=== PATIENT | female | born 1955 | race Caucasian/White ===

== ENCOUNTER 2019-10-13 09:18 | Outpatient (CLI) | payer BC, SELFPAY ==
[2019-10-13 09:42] LABS: Basophils Percent Auto 0.7 % (0.2-1.2); Eosinophils Absolute Auto 0.1 K/mm3 (0-0.3); Eosinophils Percent Auto 1.3 % (0-4.4); Hematocrit 38.1 % (37.0-47.0); Hemoglobin 12.8 g/dL (12.0-15.0); Immature Granulocyte Absolute 0.01 K/mm3 (0.00-0.031); Immature Granulocyte Percent A 0.2 % (0-0.5); Lymphocytes Absolute Auto 1.53 K/mm3 (0.9-3.2); Lymphocytes Percent Auto 27.5 % (18.3-44.2); Mean Corpuscular HGB Conc 33.6 g/dl (32-36); Mean Corpuscular Hemoglobin 30.1 pg (26-34); Mean Corpuscular Volume 89.6 fl (80-100); Mean Platelet Volume 10.2 fl (7.4-10.4); Monocytes Absolute Auto 0.3 K/mm3 (0.1-0.6); Monocytes Percent Auto 6.1 % (2.6-8.5); Neutrophils Absolute Auto 3.6 K/mm3 (1.3-6.7); Neutrophils Percent Auto 64.2 % (45.5-73.1); Platelet Count Result 265 k/mm3 (150-375); Red Blood Count 4.25 M/mm3 (4.2-5.4); Red Cell Distribution Width 11.9 % (11.5-14.5); White Blood Count 5.6 K/mm3 (4.5-10.0)
[2019-10-13 09:46] LABS: Alanine Aminotransferase 14 U/L (4-35); Albumin Level 4.2 g/dL (3.5-5.1); Alkaline Phosphatase 74 U/L (38-126); Anion Gap 8.8 mmol/L (7-16); Aspartate Amino Transferase 26 U/L (14-36); Bilirubin,Total 0.4 mg/dL (0.2-1.3); Blood Urea Nitrogen 14 mg/dL (7-17); Calcium 8.9 mg/dL (8.4-10.2); Carbon Dioxide 29 mmol/L (22-30); Chloride 104 mmol/L (98-107); Cholesterol 280 mg/dL (0-200); Estimated Glomerular Filt Rate > 60; Glucose 98 mg/dL (65-105); HDL Direct 55 mg/dL; Potassium 3.8 mmol/L (3.4-5.0); Sodium 138 mmol/L (137-145); Triglycerides 130 mg/dL (<150)
[2019-10-13 09:59] LABS: LDL Cholesterol Direct 162 mg/dL
[2019-10-13 10:37] LABS: Vitamin D 25 Hydroxy 35.6 ng/mL
[2019-10-17 17:59] LABS: Carbamazepine Tegretol 4.6 mcg/mL (4.0-12.0)
== END 2019-10-13 09:19 | disposition home or self-care (01) ==
LOC: ANHLAB 09:19
PROVIDERS: PCP Internal Medicine; Visit Provider Internal Medicine
DX: Z00.00 Encounter for general adult medical examination without abnormal findings (principal); E55.9 Vitamin D deficiency, unspecified; Z51.81 Encounter for therapeutic drug level monitoring; E78.5 Hyperlipidemia, unspecified
CPT/HCPCS: 36415; 80053; 80061; 80156; 82306; 85025

== ENCOUNTER 2020-01-21 08:20 | Outpatient (CLI) | payer BC, SELFPAY ==
--- NOTE | ~2020-01-21 | MM_ITS ---
EXAMINATION: MM screening [facility] BI w [place] HISTORY: Screening mammogram TECHNIQUE: Craniocaudal and mediolateral oblique 3-D tomosynthesis images were obtained and synthetic 2-D images were generated. CAD analysis was submitted and interpreted. COMPARISON: 12/23/2018, 10/25/2017, 08/28/2016 BREAST PARENCHYMAL COMPOSITION: There are scattered areas of fibroglandular density. FINDINGS: There is no evidence of suspicious mass, calcification, or architectural distortion to sugg est malignancy in either breast. There has been no suspicious interval change. IMPRESSION: 1. No mammographic evidence of malignancy. 2. Recommend routine screening mammography in one year. BI-RADS Category 1: Negative Reviewed, dictated and finalized at location D. CARD TENDER
== END 2020-01-21 08:21 | disposition home or self-care (01) ==
LOC: ANHIMG 08:21
PROVIDERS: PCP Internal Medicine; Visit Provider Obstetrics & Gynecology
DX: Z12.31 Encounter for screening mammogram for malignant neoplasm of breast (principal)
CPT/HCPCS: 77063; 77067

== ENCOUNTER 2020-10-11 07:58 | Outpatient (CLI) | payer MEDICARE, SELFPAY ==
[2020-10-11 09:02] LABS: Alanine Aminotransferase 23 U/L (14-59); Albumin Level 3.5 g/dL (3.4-5.0); Alkaline Phosphatase 80 U/L (46-116); Anion Gap 10 mmol/L (8-16); Aspartate Amino Transferase 17 U/L (15-37); Bilirubin,Total 0.3 mg/dL (0.00-1.00); Blood Urea Nitrogen 14 mg/dL (7-18); Calcium 8.7 mg/dL (8.5-10.1); Carbon Dioxide 28 mmol/L (21-32); Chloride 106 mmol/L (98-108); Cholesterol 247 mg/dL (0-200); Estimated Glomerular Filt Rate > 60; Glucose 91 mg/dL (70-99); HDL Direct 54 mg/dL (40-60); LDL Cholesterol Calculated 172 mg/dL (<130); Osmolality Calculated 298 mOsm/kg (285-295); Potassium 4.1 mmol/L (3.5-5.1); Sodium 144 mmol/L (136-145); Total Protein 7.2 g/dL (6.4-8.2); Triglycerides 105 mg/dL (0-150)
[2020-10-13 18:20] LABS: Vitamin D 25 Hydroxy 26 ng/mL (30-100)
[2020-10-15 22:33] LABS: Carbamazepine Tegretol 5.4 mcg/mL (4.0-12.0)
== END 2020-10-11 07:59 | disposition home or self-care (01) ==
PROVIDERS: PCP Internal Medicine; Visit Provider Internal Medicine
DX: E55.9 Vitamin D deficiency, unspecified (principal); E78.5 Hyperlipidemia, unspecified; Z00.00 Encounter for general adult medical examination without abnormal findings
CPT/HCPCS: 36415; 80053; 80061; 80156; 82306

== ENCOUNTER 2021-03-14 08:13 | Outpatient (CLI) | payer MEDICARE, SELFPAY ==
--- NOTE | ~2021-03-14 | MM_ITS ---
EXAMINATION: MM screening [facility] BI w [place] HISTORY: Screening mammogram TECHNIQUE: Craniocaudal and mediolateral oblique 3-D tomosynthesis images were obtained and synthetic 2-D images were generated. CAD analysis was submitted and interpreted. COMPARISON: 01/21/2020, 12/23/2018, 10/25/2017 BREAST PARENCHYMAL COMPOSITION: There are scattered areas of fibroglandular density. FINDINGS: There is no evidence of suspicious mass, calcification, or architectural distortion to sugg est malignancy in either breast. There has been no suspicious interval change. IMPRESSION: 1. No mammographic evidence of malignancy. 2. Recommend routine screening mammography in one year. BI-RADS Category 1: Negative Reviewed, dictated and finalized at location A. 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
== END 2021-03-14 08:14 | disposition home or self-care (01) ==
LOC: ANHIMG 08:14
PROVIDERS: PCP Internal Medicine; Visit Provider Obstetrics & Gynecology
DX: Z12.31 Encounter for screening mammogram for malignant neoplasm of breast (principal)
CPT/HCPCS: 77063; 77067

== ENCOUNTER 2021-10-11 06:51 | Outpatient (CLI) | payer MEDICARE, SELFPAY ==
[2021-10-11 07:38] LABS: Alanine Aminotransferase 21 U/L (14-59); Albumin Level 3.4 g/dL (3.4-5.0); Alkaline Phosphatase 75 U/L (46-116); Anion Gap 5 mmol/L (8-16); Aspartate Amino Transferase 15 U/L (15-37); Bilirubin,Total 0.3 mg/dL (0.00-1.00); Blood Urea Nitrogen 14 mg/dL (7-18); Calcium 8.7 mg/dL (8.5-10.1); Carbon Dioxide 30 mmol/L (21-32); Chloride 105 mmol/L (98-108); Cholesterol 237 mg/dL (0-200); Estimated Glomerular Filt Rate > 60; Glucose 91 mg/dL (70-99); HDL Direct 59 mg/dL (40-60); LDL Cholesterol Calculated 158 mg/dL (<130); Osmolality Calculated 290 mOsm/kg (285-295); Potassium 3.9 mmol/L (3.5-5.1); Sodium 140 mmol/L (136-145); Total Protein 6.9 g/dL (6.4-8.2); Triglycerides 102 mg/dL (0-150)
[2021-10-17 07:28] LABS: Vitamin D 25 Hydroxy 29 ng/mL (30-100)
== END 2021-10-11 06:52 | disposition home or self-care (01) ==
LOC: CHSLAB 06:53
PROVIDERS: PCP Internal Medicine; Visit Provider Internal Medicine
DX: E78.5 Hyperlipidemia, unspecified (principal); E55.9 Vitamin D deficiency, unspecified
CPT/HCPCS: 36415; 80053; 80061; 82306

== ENCOUNTER 2021-10-24 08:47 | Outpatient (RCR) | payer MEDICARE, SELFPAY ==
--- NOTE | 2021-10-24 11:27 | PTOPEVAL ---
Thank you for referring Ruma Floyd to [facility].? The patient is scheduled to be seen for therapy? 1-2x/week for 10 visits. Please review, sign, date and return this plan of care JANICE. I agree with and certify that the following plan of care is medically necessary. Referring Physician Date Admitting Provider: Attending Provider: Jarrell Bess DO Referring Provider: *PT Outpatient Evaluation Start: 10/24/21 08:32 Freq: Status: Active Protocol: Document 10/24/21 08:57 [facility] (Rec: 10/24/21 11:24 [facility] [email or web address]) Therapy Assessment Status Assessment Status Assessment Status Evaluation Evaluation Information Problem Diagnosis Pain in leg, pain in hip, LBP Onset 10/18/2021 Subjective Information Pt reports insidious onset of Query Text:As Reported By Patient/ L hip pain over the past 2 Family years and recent flare up in back pain after standing up incorrectly. Pt reports past history of R foot surgery in 2018 where she was in a boot for about 4 months and wonders if this has led to her L hip pain. Has had Xray which shows arthritis in L hip. Pt reports her pain in her anterolateral and posterior thigh and in her L and R low back region. Pt reports most pain when standing for extended periods of time or when lying on her side (R>L), as well as when she first wakes up on the morning. Feels like she walks like a penguin to avoid shooting pain in hip . Denies N/T or weakness. Pt reports pain relief when moving, using ice/heat, or massaging her low back. Likes to read and sit outside, walk and go out to eat with friends , and ride stationary bike every day. 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
== END 2021-12-09 16:42 | disposition home or self-care (01) ==
LOC: CHSPT 08:47
PROVIDERS: Visit Provider Internal Medicine
DX: M79.606 Pain in leg, unspecified (principal); M25.559 Pain in unspecified hip; M54.50 Low back pain, unspecified; G89.29 Other chronic pain
CPT/HCPCS: 97110; 97112; 97140; 97161

== ENCOUNTER 2021-11-04 09:12 | Outpatient (CLI) | payer MEDICARE, SELFPAY ==
[2021-11-04 09:34] LABS: Basophils Absolute Auto 0.02 K/mm3 (0.00-0.10); Basophils Percent Auto 0.4 % (0.0-1.0); Eosinophils Absolute Auto 0.04 K/mm3 (0.02-0.50); Eosinophils Percent Auto 0.7 % (1.0-6.0); Hematocrit 36.7 % (35.0-42.0); Hemoglobin 12.4 g/dL (11.7-13.8); Immature Granulocyte Absolute 0.01 K/mm3 (0.00-0.00); Immature Granulocyte Percent A 0.2 % (0.0-0.0); Lymphocytes Absolute Auto 1.43 K/mm3 (1.10-4.50); Lymphocytes Percent Auto 26.8 % (18.0-42.0); Mean Corpuscular HGB Conc 33.8 g/dL (32.0-36.0); Mean Corpuscular Hemoglobin 30.7 pg (27.0-31.0); Mean Corpuscular Volume 90.8 fL (78.0-102.0); Mean Platelet Volume 9.4 fl (9.2-11.8); Monocytes Absolute Auto 0.29 K/mm3 (0.10-0.90); Monocytes Percent Auto 5.4 % (2.0-11.0); Neutrophils Absolute Auto 3.6 K/mm3 (1.7-7.2); Neutrophils Percent Auto 66.5 % (50.0-70.0); Platelet Count Result 274 K/mm3 (150-420); Red Blood Count 4.04 M/mm3 (4.20-5.40); Red Cell Distribution Width 11.8 % (11.6-14.4); White Blood Count 5.3 K/mm3 (4.8-10.8)
[2021-11-04 10:14] LABS: Alanine Aminotransferase 24 U/L (14-59); Albumin Level 3.4 g/dL (3.4-5.0); Alkaline Phosphatase 80 U/L (46-116); Anion Gap 5 mmol/L (8-16); Aspartate Amino Transferase 29 U/L (15-37); Bilirubin,Total 0.3 mg/dL (0.00-1.00); Blood Urea Nitrogen 11 mg/dL (7-18); Calcium 8.9 mg/dL (8.5-10.1); Carbon Dioxide 29 mmol/L (21-32); Chloride 103 mmol/L (98-108); Estimated Glomerular Filt Rate > 60; Glucose 99 mg/dL (70-99); Osmolality Calculated 283 mOsm/kg (285-295); Potassium 3.8 mmol/L (3.5-5.1); Sodium 137 mmol/L (136-145); Total Protein 7.4 g/dL (6.4-8.2)
[2021-11-04 10:18] LABS: Cholesterol 244 mg/dL (0-200); HDL Direct 61 mg/dL (40-60); LDL Cholesterol Calculated 160 mg/dL (<130); Triglycerides 113 mg/dL (0-150)
[2021-11-07 19:11] LABS: Vitamin D 25 Hydroxy 36 ng/mL (30-100)
[2021-11-08 23:30] LABS: Carbamazepine Tegretol 4.5 mcg/mL (4.0-12.0)
== END 2021-11-04 09:13 | disposition home or self-care (01) ==
LOC: CHSLAB 09:13
PROVIDERS: PCP Internal Medicine; Visit Provider Psychiatry & Neurology Neurology
DX: R56.9 Unspecified convulsions (principal); Z51.81 Encounter for therapeutic drug level monitoring; E78.5 Hyperlipidemia, unspecified; Z00.00 Encounter for general adult medical examination without abnormal findings; E55.9 Vitamin D deficiency, unspecified
CPT/HCPCS: 36415; 80053; 80061; 80156; 82306; 85025

== ENCOUNTER 2022-02-08 13:13 | Outpatient (CLI) | payer MEDICARE, SELFPAY ==
--- NOTE | ~2022-02-08 | XR_ITS ---
XR hip LT min 2V 02/08/2022 13:37 Indication: Left hip pain Procedure: 2 views left hip Comparison: No prior studies for comparison. Findings: There is severe osteoarthritis of the left hip. There are loose bodies adjacent to the join t space. No acute fracture or traumatic malalignment. There are degenerative subchondral cyst along t he acetabulum and femoral head. Impression: 1: Severe osteoarthritis of the left hip. Reviewed, dictated and finalized at location A. 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
== END 2022-02-08 13:14 | disposition home or self-care (01) ==
LOC: CHSIMG 13:15
PROVIDERS: PCP Internal Medicine; Visit Provider Internal Medicine
DX: M16.12 Unilateral primary osteoarthritis, left hip (principal)
CPT/HCPCS: 73502

== ENCOUNTER 2022-05-05 08:24 | Outpatient (CLI) | payer MEDICARE, SELFPAY ==
--- NOTE | ~2022-05-05 | DEXA_ITS ---
Bone Density Report Name: PRASHANT LEMOS Age: 66 Sex: Female Ethnicity: White Date of : 1955 Indication: postmenopausal; screening for osteoporosis; height loss; Referring Provider: ALEXI GARCIA Study: Bone densitometry was performed. Exam Date: May 05, 2022 Accession number: [id number] Bone Density: Region BMD T-score Z-score Classification AP Spine(L1-L4) 1.115 0.6 2.5 Normal Femoral Neck (Left) 0.742 -1.0 0.6 Normal Total Hip (Left) 0.793 -1.2 0.1 Osteopenia Femoral Neck (Right) 0.673 -1.6 0.0 Osteopenia Total Hip (Right) 0.854 -0.7 0.6 Normal Total Hip Mean 0.824 -1.0 0.4 Normal World Health Organization criteria for BMD impression classify patients as: Normal (T-score at or above -1.0), Osteopenia (T-score between -1.0 and -2.5), or Osteoporosis (T-score at or below -2.5). 10-year Fracture Risk(1): Major Osteoporotic Fracture 9.2% Hip Fracture 1.1% Reported Risk Factors: [place] (), Neck BMD=0.673, BMI=28.8 (1) FRAX(R) Version 3.08. Fracture probability calculated for an untreated patient. Fracture probability may be lower if the patient has received treatment. Clinical Information Provided by Patient: Has used the following medications: Vitamin D Patient maximum height was 70 Menopause Age: 50 Drinks caffeinated beverages Onset of menses at age 12 Number of children 1 Impression: The patient has low bone mass, based on the Right Femoral Neck T-score. The patient has an estimated ten-year risk of hip fracture of 1.1% and an estimated ten-year risk of major fracture of 9.2%, based on the WHO FRAX algorithm. Discussion: BONE DENSITY IS LOW AT ONE OR MORE SKELETAL SITES. This patient's lowest T-score is low at one or more skeletal sites. It meets the World Health Organization's (WHO) criteria for ?low bone mass? (T-score between -1.0 and -2.5). The patient's 10-year risk of fracture as calculated by FRAX is less than the threshold where pharmacological therapy is recommended by the National Osteoporosis Foundation (NOF). However, all treatment decisions require clinical judgment and consideration of individual patient factors, including patient preferences, comorbidities, previous drug use, risk factors not captured in the FRAX model (e.g., frailty, falls, vitamin D deficiency, increased bone turnover, interval significant decline in bone density) and possible under or overestimation of fracture risk by FRAX. The patient should follow a healthful lifestyle (good nutrition with adequate calcium and vitamin D, and appropriate weight-bearing exercise). Follow-Up: Consider repeating this study in 2 to 3 years to reassess this patient's status, or sooner if there is some new clinical indication. Reported by: ABEL on 05/05/2022 8:50:00 AM. ____
--- NOTE | ~2022-05-05 | MM_ITS ---
EXAMINATION: MM screening [facility] BI w [facility] HISTORY: Screening mammogram TECHNIQUE: Craniocaudal and mediolateral oblique 3-D tomosynthesis images were obtained and synthetic 2-D images were generated. CAD analysis was submitted and interpreted. COMPARISON: 01/12/2022, 01/21/2020, 12/23/2018 bilateral screening mammogram examinations BREAST PARENCHYMAL COMPOSITION: There are scattered areas of fibroglandular density. FINDINGS: There is no evidence of suspicious mass, calcification, or architectural distortion to sugg est malignancy in either breast. There has been no suspicious interval change. IMPRESSION: 1. No mammographic evidence of malignancy. 2. Recommend routine screening mammography in one year. BI-RADS Category 1: Negative Reviewed, dictated and finalized at location A. 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
== END 2022-05-05 08:25 | disposition home or self-care (01) ==
LOC: ANHIMG 08:27
PROVIDERS: PCP Internal Medicine; Visit Provider Obstetrics & Gynecology
DX: Z12.31 Encounter for screening mammogram for malignant neoplasm of breast (principal); Z78.0 Asymptomatic menopausal state; M85.852 Other specified disorders of bone density and structure, left thigh; M85.851 Other specified disorders of bone density and structure, right thigh
CPT/HCPCS: 77063; 77067; 77080

== ENCOUNTER 2022-05-30 07:32 | Outpatient (CLI) | payer MEDICARE, SELFPAY ==
[2022-05-30 08:06] LABS: Hemoglobin A1C 5.7 % (<5.7)
[2022-05-30 08:38] LABS: Alanine Aminotransferase 28 U/L (14-59); Albumin Level 3.5 g/dL (3.4-5.0); Alkaline Phosphatase 80 U/L (46-116); Anion Gap 6 mmol/L (8-16); Aspartate Amino Transferase 20 U/L (15-37); Bilirubin,Total 0.4 mg/dL (0.00-1.00); Blood Urea Nitrogen 13 mg/dL (7-18); Calcium 8.6 mg/dL (8.5-10.1); Carbon Dioxide 32 mmol/L (21-32); Chloride 105 mmol/L (98-108); Cholesterol 231 mg/dL (0-200); Estimated Glomerular Filt Rate > 60; Glucose 93 mg/dL (70-99); HDL Direct 69 mg/dL (40-60); LDL Cholesterol Calculated 145 mg/dL (<130); Osmolality Calculated 296 mOsm/kg (285-295); Potassium 4.2 mmol/L (3.5-5.1); Sodium 143 mmol/L (136-145); Thyroid Stimulating Hormone 1.35 uIU/mL (0.36-3.74); Total Protein 7.3 g/dL (6.4-8.2); Triglycerides 86 mg/dL (0-150)
[2022-06-02 19:21] LABS: Carbamazepine Tegretol 5.7 mcg/mL (4.0-12.0)
[2022-06-03 12:30] LABS: Vitamin D 1,25 (OH)2 Total 46 pg/mL (18-72); Vitamin D2 1,25 (OH)2 31 pg/mL; Vitamin D3 1,25 (OH)2 15 pg/mL
== END 2022-05-30 07:33 | disposition home or self-care (01) ==
LOC: CHSLAB 07:34
PROVIDERS: PCP Internal Medicine; Visit Provider Internal Medicine
DX: E78.5 Hyperlipidemia, unspecified (principal); G40.909 Epilepsy, unspecified, not intractable, without status epilepticus; E55.9 Vitamin D deficiency, unspecified; Z79.899 Other long term (current) drug therapy
CPT/HCPCS: 36415; 80053; 80061; 80156; 82652; 83036; 84443

== ENCOUNTER 2022-10-17 08:24 | Outpatient (CLI) | payer MEDICARE, SELFPAY ==
[2022-10-17 08:56] LABS: Basophils Absolute Auto 0.02 K/mm3 (0.00-0.10); Basophils Percent Auto 0.4 % (0.0-1.0); Eosinophils Absolute Auto 0.04 K/mm3 (0.02-0.50); Eosinophils Percent Auto 0.9 % (1.0-6.0); Hematocrit 36.4 % (35.0-42.0); Hemoglobin 12.3 g/dL (11.7-13.8); Immature Granulocyte Absolute 0.01 K/mm3 (0.00-0.00); Immature Granulocyte Percent A 0.2 % (0.0-0.0); Lymphocytes Absolute Auto 1.04 K/mm3 (1.10-4.50); Lymphocytes Percent Auto 22.2 % (18.0-42.0); Mean Corpuscular HGB Conc 33.8 g/dL (32.0-36.0); Mean Corpuscular Hemoglobin 30.4 pg (27.0-31.0); Mean Corpuscular Volume 90.1 fL (78.0-102.0); Mean Platelet Volume 9.4 fl (9.2-11.8); Monocytes Absolute Auto 0.28 K/mm3 (0.10-0.90); Neutrophils Absolute Auto 3.3 K/mm3 (1.7-7.2); Neutrophils Percent Auto 70.3 % (50.0-70.0); Platelet Count Result 239 K/mm3 (150-420); Red Blood Count 4.04 M/mm3 (4.20-5.40); Red Cell Distribution Width 11.5 % (11.6-14.4); White Blood Count 4.7 K/mm3 (4.8-10.8)
[2022-10-17 09:23] LABS: Alanine Aminotransferase 25 U/L (14-59); Albumin Level 3.7 g/dL (3.4-5.0); Alkaline Phosphatase 92 U/L (46-116); Anion Gap 5 mmol/L (8-16); Aspartate Amino Transferase 16 U/L (15-37); Bilirubin Direct 0.1 mg/dL (0-0.2); Bilirubin,Total 0.3 mg/dL (0.00-1.00); Blood Urea Nitrogen 13 mg/dL (7-18); Carbon Dioxide 31 mmol/L (21-32); Chloride 104 mmol/L (98-108); Cholesterol 183 mg/dL (0-200); Estimated Glomerular Filt Rate > 60; HDL Direct 64 mg/dL (40-60); LDL Cholesterol Calculated 99 mg/dL (<130); Potassium 4.1 mmol/L (3.5-5.1); Sodium 140 mmol/L (136-145); Total Protein 7.4 g/dL (6.4-8.2); Triglycerides 102 mg/dL (0-150)
[2022-10-17 09:27] LABS: Glucose 96 mg/dL (70-99); Osmolality Calculated 290 mOsm/kg (285-295)
[2022-10-22 22:44] LABS: Vitamin D 25 Hydroxy 49 ng/mL (30-100)
== END 2022-10-17 08:25 | disposition home or self-care (01) ==
LOC: CHSLAB 08:26
PROVIDERS: PCP Family Medicine; Visit Provider Nurse Practitioner Family
DX: E78.5 Hyperlipidemia, unspecified (principal); Z13.228 Encounter for screening for other metabolic disorders; Z13.0 Encounter for screening for diseases of the blood and blood-forming organs and certain disorders involving the immune mechanism; E55.9 Vitamin D deficiency, unspecified; Z78.0 Asymptomatic menopausal state
CPT/HCPCS: 36415; 80053; 80061; 82248; 82306; 85025

== ENCOUNTER 2022-10-30 07:52 | Outpatient (RCR) | payer MEDICARE, SELFPAY ==
--- NOTE | 2022-10-30 08:57 | OPREHPOC ---
Outpatient Therapy Plan of Care This is a Multidisciplinary Plan of Care that may contain components documented by all disciplines (PT, OT, and ST.) PT Problem 1 PT Problem #1 Knowledge Deficit PT Goal 1 Goal Patient to demonstrate independence with self techniques to manage vertigo at home. Target Visit 4 PT Problem 2 PT Problem #2 Impaired Functional Mobil PT Goal 1 Goal 1. Patient to report ability to roll to the R in bed with no increase in vertigo symptoms. 2. Patient to report ability to complete house hold tasks at PLOF Target Visit 4
--- NOTE | 2022-10-30 08:57 | PTOPEVAL1 ---
Assessment and note entered by Nancy Fermin DPT Evaluation Information Assessment Status Evaluation Diagnosis vertigo, dizziness Onset 10/24/22 Subjective Information Patient reports that she has had dizziness increasing over the last year with recent occurances in the last week. She reports in bed if she rolls from L to R in bed she gets a short bout of room spinning. She also reports neck pain that seems to cause sharp pains and head ache. She reports she is getting an MRI but is waiting for insurance approval. Reported Pain Level Pain Score 0: Self Report Assessment PT Clinical Summary Patient is a 67 year old female who presents to PT with vertigo and dizziness. Patient displays positive nazario white pike to the R side that is resolved with R modified epely. Patient also demonstrates decreased cervical ROM. Patient is limited in her ability to roll and bed and complete house hold tasks and would benefit from skilled PT to address impairments and return to PLOF. Plan of Care Interventions Hot Pack/Cold Pack,Manual Therapy,Mechanical Traction,Neuro Re-education,Patient/Caregiver Educati,Therapeutic Activities,Therapeutic Exercise PT Services Indicated Yes Treatment Frequency and 2x weekly for 4 visits Duration These treatments will address the objective and functional deficits as defined above. The patient will be advanced safely and appropriately in order for the patient to progress towards his/her prior level of function. Additional exercises will be introduced and as well as a comprehensive home exercise program upon discharge, if needed, ?to ensure carryover of functional gains achieved in the clinic. This treatment plan has been reviewed and agreement upon by the patient.
== END 2022-11-02 14:08 | disposition home or self-care (01) ==
LOC: CHSPT 07:52
PROVIDERS: Visit Provider Student in an Organized Health Care Education/Training Program
DX: H81.11 Benign paroxysmal vertigo, right ear (principal); M54.2 Cervicalgia; R51.9 Headache, unspecified
CPT/HCPCS: 95992; 97110; 97140; 97161

== ENCOUNTER 2022-12-06 07:48 | Outpatient (CLI) | payer MEDICARE, SELFPAY ==
--- NOTE | 2022-12-06 08:59 | ECG_ITS ---
Measurements Intervals [place] Rate: 68 P: 31 [place]: 154 QRS: 60 QRSD: 91 T: 45 QT: 393 QTc: 419 Interpretive Statements SINUS RHYTHM NORMAL ECG NO PREVIOUS ECG AVAILABLE FOR COMPARISON Electronically Signed On 12-06-2022 9:17:06 CDT by Kirk Henriquez D.O.
[2022-12-06 09:25] LABS: Basophils Percent Auto 0.2 % (0.2-1.2); Eosinophils Percent Auto 0.2 % (0-4.4); Hematocrit 36.6 % (37.0-47.0); Hemoglobin 12.1 g/dL (12.0-15.0); Immature Granulocyte Absolute 0.01 K/mm3 (0.00-0.031); Immature Granulocyte Percent A 0.2 % (0-0.5); Lymphocytes Absolute Auto 0.91 K/mm3 (0.9-3.2); Lymphocytes Percent Auto 22.2 % (18.3-44.2); Mean Corpuscular HGB Conc 33.1 g/dl (32-36); Mean Corpuscular Hemoglobin 29.7 pg (26-34); Mean Corpuscular Volume 89.9 fl (80-100); Monocytes Absolute Auto 0.3 K/mm3 (0.1-0.6); Monocytes Percent Auto 7.3 % (2.6-8.5); Neutrophils Absolute Auto 2.9 K/mm3 (1.3-6.7); Neutrophils Percent Auto 69.9 % (45.5-73.1); Platelet Count Result 156 k/mm3 (150-375); Red Blood Count 4.07 M/mm3 (4.2-5.4); Red Cell Distribution Width 11.6 % (11.5-14.5); White Blood Count 4.1 K/mm3 (4.5-10.0)
[2022-12-06 09:35] LABS: Urine Cotinine NEGATIVE
[2022-12-06 09:38] LABS: Albumin Level 4.1 g/dL (3.5-5.1); Anion Gap 6 mmol/L (8-16); Blood Urea Nitrogen 16 mg/dL (7-17); Calcium 8.8 mg/dL (8.4-10.2); Carbon Dioxide 28 mmol/L (22-30); Chloride 103 mmol/L (98-107); Estimated Glomerular Filt Rate > 60; Glucose 99 mg/dL (65-110); Potassium 3.8 mmol/L (3.4-5.0); Sodium 137 mmol/L (137-145)
[2022-12-06 09:40] LABS: Hemoglobin A1C 5.6 % (<5.7)
[2022-12-09 14:34] LABS: Carbamazepine Tegretol 4.8 mcg/mL (4.0-12.0)
== END 2022-12-06 07:49 | disposition home or self-care (01) ==
LOC: ANHSURGERY 07:53
PROVIDERS: Anesthesiology; PCP Family Medicine; Visit Provider Orthopaedic Surgery
DX: M16.12 Unilateral primary osteoarthritis, left hip (principal); Z29.8 Encounter for other specified prophylactic measures; Z01.818 Encounter for other preprocedural examination
CPT/HCPCS: 80048; 80156; 80307; 82040; 83036; 85025; 87081; 93005

== ENCOUNTER 2022-12-27 01:01 | Day surgery (SDC) | payer MEDICARE, SELFPAY ==
[2022-12-06 08:03] VITALS: BP 116/45; PULSE 70; RESP 16; TEMP 37.4; O2SAT 100
[2022-12-06 08:21] VITALS: BMI 27.0
--- NOTE | 2022-12-06 08:34 | PC.NURSE ---
Report to the Outpatient Waiting Room, entrance under the green pavilion located off [facility], at time _10:00AM on date _12/27/22 . Planned Procedure Time: _12:00PM . Time changes happen often and if your time is changed the preop area will call you the afternoon before. - You and your visitor will be asked to self-screen and do not enter if you have any COVID symptoms. - A mask is optional within the hospital at this time. Patients may have clear liquids (water, carbonated beverages, clear teas, apple juice) until 3 hours prior to surgery with a maximum of 20 ounces. - No food from midnight until time of surgery. Take the following medications with a SIP of water the morning of surgery: __CARBAMAZEPINE DO NOT STOP ANY OF YOUR OTHER PRESCRIPTION MEDICATIONS PRIOR TO SURGERY ?EXCEPT THE FOLLOWING Medications to discontinue per physician ___HOLD MELOXICAN AND ALL VITAMINS/SUPPLEMENTS 7 DAYS PRE-OP PER DR SIMPSON Date to take last dose 12/20/22 Please no make-up, nail bulgarian, hairspray, perfume, deodorant, or body powder the day of surgery. No jewelry (including any body piercings) or valuables the day of surgery, leave them at home. Please take a shower or bath the night before, or the morning of, surgery with an antibacterial soap. Wear comfortable, loose fitting clothing. Children are encouraged to wear pajamas. - Jewelry must be removed prior to entering the operating room. Rings and piercings that are not removed may be cut off. - The hospital will not accept responsibility for valuables. - Please leave all valuables, including medications, at home the day of surgery. If you are going home after surgery, a licensed regional flatbed truck driver must drive you home. - NO public transportation without another adult if you receive anesthesia. - We recommend that an adult stay with you for 24 hours following discharge. - We also recommend that you do not drive, make important decision, drink alcoholic beverages, or take any drugs that were not prescribed by your health care provider for at least 24 hours after your discharge time. Follow any additional instructions given to you from your surgeon. If you or anyone in your household have experienced Covid symptoms in the past week, please notify your surgeon or the nurse liaison at the phone number below for possible testing. Telephone instructions given to ___PAATIENT and asked if any additional questions and then verbalized understanding. Patient advised to call surgeon office or pre surgery nurse liaison [phone] if any additional questions.
--- NOTE | 2022-12-25 12:15 | PM.IMHP ---
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 She has been having symptoms in the hip for about 2 years. It has progressively gotten worse and more painful for her. She has severe pain in the groin and anterior lateral hip any activities at this point. She has been meloxicam recently. She does occasionally use a cane due to the pain in the hip. Patient has advanced osteoarthritis of the left hip. At this point she feels she is ready to proceed with total hip arthroplasty rather than continue nonsurgical treatment Review of Systems Review of Systems: All systems reviewed & are unremarkable except as noted in HPI and below PMFSH Past Medical History Medical History History of 1 spontaneous Hyperlipemia Seizure disorder Vitamin D deficiency Surgical History Surgical History History of section History of foot surgery Family History Family History Mother Patient's mother is in good health Father Patient's father is in good health Sibling Family history of diabetes mellitus in first degree relative Diabetes mellitus Social History Social History Smoking status: Never smoker Second hand tobacco smoke exposure: No Alcohol intake: current Substance use: never Substance use type: does not use Lack of Transportation: No Lack of Food: Never True Current Housing: I Have Housing Concerned About Future Housing: No Difficulty Paying Gas/Electric Bills: No Difficulty Paying for Meds: No Currently Unemployed: No Education: Bachelor's Degree Difficulty w/ Childcare or Family Care: No Living arrangements: with family Additional living arrangements comments: DAUGHTER Occupation/Education: retired Gender identity (if verbalized by the patient): Female Spiritual care concerns: No Meds Home Medications and Allergies Home Medications Medication Instructions Recorded Confirmed Type acetaminophen 500 mg tablet 1,000 mg PO BID PRN pain #100 tabs 02/07/22 12/06/22 Rx meloxicam 15 mg tablet 15 mg PO DAILY #30 tabs 06/08/22 12/06/22 Rx carbamazepine 200 mg See Rx Instructions .Route 10/02/22 12/06/22 Rx tablet,extended release,12 hr .COMPLEX #60 tabs ergocalciferol (vitamin D2) 1,250 50,000 unit PO .COMPLEX Vitamin d 10/24/22 12/06/22 Rx mcg (50,000 unit) capsule (Vitamin deficiency #9 caps D2) rosuvastatin 10 mg tablet (Crestor) 10 mg PO DAILY #90 tabs 11/27/22 12/06/22 Rx L.acidophil-L.casei-B.bifid-B.longum-FOS 1 cap PO DAILY 12/06/22 12/06/22 History 2 billion cell-50 mg capsule (Probiotic Blend) coenzyme Q10 100 mg capsule 100 mg PO DAILY 12/06/22 12/06/22 History (CoQ-10) tramadol 50 mg tablet 50 mg PO TID PRN Pain 12/06/22 12/06/22 History hydroxyzine HCl 25 mg tablet See Rx Instructions .Route 12/25/22 Rx .COMPLEX #60 tabs Allergies Allergy/AdvReac Type Severity Reaction Status Date / Time Penicillins Allergy Severe Hives, RASH Verified 12/06/22 08:14 Exam Narrative: 67-year-old female alert pleasant. She is 5 ft 9 and 187 lb BMI is 27.6. Left hip flexes to 100, internal rotation is 0 and external rotation 15, each movement causes her moderately severe pain in the anterior lateral hip and groin. There is no edema in lower extremity. 2+ dorsalis pedis and 1+ posterior artery pulse palpable. Normal sensation. skin around the hip and groin crease are all normal. She walks with a mild limp. She has moderate abduction weakness in the lateral position. Resp: Auscultation: clear to auscultation bilaterally Cardio: Rate: regular rate Rhythm: regular rhythm Asses
[2022-12-27] VITALS (11 sets, daily range): BP systolic 121–145; BP diastolic 42–84; PULSE 77–105; RESP 12–18; TEMP 36.6–37.1; O2SAT 96–100; BMI 26.6
--- NOTE | ~2022-12-27 | XR_ITS ---
EXAMINATION: XR hip LT 1V w AP pelvis DATE: 12/27/2022 16:11 INDICATION: Anterior approach left total hip arthroplasty. Postop. TECHNIQUE: An anteroposterior view of the pelvis and single view of left hip were obtained. COMPARISON: Left hip radiographs 02/08/2022 FINDINGS: There is a total left hip arthroplasty in near-anatomic alignment. No fracture. There is se aaron right hip osteoarthritis. There is gas in the left hip soft tissues, consistent with recent surg padilla. A surgical drain is noted. IMPRESSION: 1. Total left hip arthroplasty in near-anatomic alignment. 2. Severe right hip osteoarthritis. Reviewed, dictated and finalized at location E.
--- NOTE | ~2022-12-27 | XR_ITS ---
EXAMINATION: XR surgery orthopedic DATE: 12/27/2022 15:50 INDICATION: Anterior approach left total hip arthroplasty TECHNIQUE: A fluoroscopic images of the left hip were obtained during procedure performed by Dr. Caitlin danielle. Radiologist was not present for the imaging or procedure. The amount of fluoroscopy time used du ring this procedure was 0.7 minutes. COMPARISON: None. FINDINGS: Initial images demonstrate resection of the left femoral head and neck with surgical instruments proj ecting over the empty left acetabulum where there is lucent gas. Final image demonstrates placement o f a noncemented left total hip arthroplasty acetabular component which is affixed with at least a sin gle screw. Alignment appears near-anatomic on the provided frontal projection. There is residual luce nt gas at the operative bed. IMPRESSION: 1. Fluoroscopy utilized during placement of a left total hip arthroplasty which appears in near-anato serina alignment. See procedure note for further detail. Reviewed, dictated and finalized at location A. IMPRESSION: 1. Fluoroscopy utilized during placement of a left total hip arthroplasty which appears in near-anatomic alignment. See procedure note for further detail.
[2022-12-27] MEDS: ACETAMINOPHEN 500 MG TABLET 1000 MG PO ×2 (10:30→19:39)
[2022-12-27] MEDS: VANCOMYCIN 1,250 MG/NS 250 ML BAG 166.67 MG IVPB (10:31)
[2022-12-27] MEDS: LACTATED RINGERS 1,000 ML 30 ML IV CONT ×2 (10:32→16:11)
--- NOTE | 2022-12-27 11:19 | WPDANESEPPF ---
Anes - Initial Pre Proc Eval Procedure: Operation Date: 12/27/22 12:00 Proposed Procedures p Left Total Hip Arthroplasty Anterior Approach - Edson Tong MD Date/Time: 12/27/22 11:19 Surgeon: Edson Tong MD Pre Op Diagnosis: O A Lt Hip Patient Data Age: 67 Gender: F Height: 1.75 m Weight: 81.8 kg Last Vital Signs Temp 98.2 F 12/27/22 11:04 Pulse 93 12/27/22 11:04 Resp 18 12/27/22 11:04 BP 140/58 L 12/27/22 11:04 Pulse Ox 100 12/27/22 11:04 O2 Del Method Room Air 12/06/22 08:03 Allergies Allergy/AdvReac Type Severity Reaction Status Date / Time Penicillins Allergy Severe Hives, RASH Verified 12/27/22 10:11 Home Medications Medication Instructions Recorded Confirmed Type acetaminophen 500 mg tablet 1,000 mg PO BID PRN pain #100 tabs 02/07/22 12/27/22 Rx meloxicam 15 mg tablet 15 mg PO DAILY #30 tabs 06/08/22 12/27/22 Rx carbamazepine 200 mg See Rx Instructions .Route 10/02/22 12/27/22 Rx tablet,extended release,12 hr .COMPLEX #60 tabs ergocalciferol (vitamin D2) 1,250 50,000 unit PO .COMPLEX Vitamin d 10/24/22 12/27/22 Rx mcg (50,000 unit) capsule (Vitamin deficiency #9 caps D2) rosuvastatin 10 mg tablet (Crestor) 10 mg PO DAILY #90 tabs 11/27/22 12/27/22 Rx L.acidophil-L.casei-B.bifid-B.longum-FOS 1 cap PO DAILY 12/06/22 12/27/22 History 2 billion cell-50 mg capsule (Probiotic Blend) coenzyme Q10 100 mg capsule 100 mg PO DAILY 12/06/22 12/27/22 History (CoQ-10) tramadol 50 mg tablet 50 mg PO TID PRN Pain 12/06/22 12/27/22 History hydroxyzine HCl 25 mg tablet See Rx Instructions .Route 12/25/22 12/27/22 Rx .COMPLEX #60 tabs Laboratory Tests 12/27/22 10:17 Blood Type Pending Antibody Screen Pending Patient hx anesthesia problems: none Family hx anesthesia problems: none Results Review: All pre-operative results and documents have been reviewed as part of the pre-operative evaluation. [facility] Past Medical History Medical History History of 1 spontaneous Hyperlipemia Seizure disorder Vitamin D deficiency Surgical History Surgical History History of section History of foot surgery Family History Family History Mother Patient's mother is in good health Father Patient's father is in good health Sibling Family history of diabetes mellitus in first degree relative Diabetes mellitus Social History Social History Smoking status: Never smoker Second hand tobacco smoke exposure: No Alcohol intake: current Substance use: never Substance use type: does not use Lack of Transportation: No Lack of Food: Never True Current Housing: I Have Housing Concerned About Future Housing: No Difficulty Paying Gas/Electric Bills: No Difficulty Paying for Meds: No Currently Unemployed: No Education: Bachelor's Degree Difficulty w/ Childcare or Family Care: No Living arrangements: with family Additional living arrangements comments: DAUGHTER Occupation/Education: retired Gender identity (if verbalized by the patient): Female Spiritual care concerns: No Anes - Eval Final PreProcedure Day of Procedure 12/27/22 11:19 Patient weight: normal Heart: regular rate and rhythm Lungs: clear to auscultation Airway: Mallampati scale class II Neurological: alert and oriented Last oral intake: >/= 8 hours ASA classification: III Emergent: no Anesthetic plan: proceed Anesthesia type and monitoring: general ETT and standard monitoring Results Review: All pre-operative results and documents have been reviewed as part of the pre-operative evaluation. Informed Consent: The patient's anesthetic plan and its attendant risks and benefits were discussed with the patient/family
[2022-12-27] MEDS: TRANEXAMIC ACID 1,000MG/ISO100 1,000 MG/100 ML BAG 200 MG IVPB (11:30)
--- NOTE | 2022-12-27 12:10 | WPDHPUPDATE1 ---
History and Physical Update Update Date/Time: 12/27/22 12:10 History and Physical has been reviewed, including an updated exam of the patient. There are NO changes in the patient's condition. Risks, benefits, and alternatives have been discussed and questions answered. Patient agrees to proceed with procedure.
[2022-12-27] MEDS: ceFAZolin 2 GM/D5W 50 ML 2 GM/50 ML BAG IVPB (12:24)
[2022-12-27] MEDS: ceFAZolin SODIUM 1 GM VIAL 3 GM IRRIGATION (13:11)
[2022-12-27] MEDS: TRANEXAMIC ACID 1,000 MG/10 ML AMPUL 1000 MG IV PUSH (15:45)
[2022-12-27] MEDS: ceFAZolin SODIUM 1 GM VIAL 2 GM IV PUSH (15:45)
--- NOTE | 2022-12-27 15:55 | W.PM.PROC2 ---
Procedure Note - Detailed Date of Procedure 12/27/22 Pre-op Diagnosis O A Lt Hip Post-op Diagnosis Same Procedure Performed Left direct anterior approach hip. Surgeon Edson Tong MD Tnt Powder Worker Jeanette Anesthesia General Description of Procedure Patient was brought to the operating room and general anesthesia was administered. She received 2 g of Ancef weight based vancomycin 1 g of tranexamic acid preoperatively. Padding was applied to the feet and boots applied and she was transferred to the OSI [place] table and the left hip prepped draped usual fashion. A 10 cm longitudinal incision was made starting 3 cm lateral to the ASIS. Dissection was carried down to the fascia over the tensor fascia hien which was longitudinally incised and elevated off the anterior 50% of the TFL muscle. Interval between TFL and rectus femoris was developed and the crossing branches of ascending lateral femoral circumflex vessels were ligated with suture divided. A retractor was placed anteromedial to the capsule the hip hip abducted internally rotated the gluteus minimus elevated off the lateral capsule. I see that the gluteus minimus was fatty in color at the minimus tendon was present and fairly intact and the medius muscle was fairly normal and the tendon looked intact therefore I did not feel dual mobility was necessary. A an inverted T capsulotomy was performed and femoral neck osteotomy made according to preop templating. The femur was extended externally rotated and the interval between conjoined tendon and piriformis was incised which allowed the piriformis to flipped and the conjoined tendon to recess just a little bit. With the leg back in horizontal position traction external rotation acetabulum was fully exposed labrum excised. There was a prominent superomedial cyst that we curetted and packed with cancellous bone from the femoral head. The femoral head bone was soft and osteoporotic. The acetabular rim was somewhat fragmented posterior superiorly and posteriorly. The rim fragments were removed we could see that there was evidence of nonunion and chronicity between these fragments and the residual acetabular rim but the integrity of the residual and S stabbing rim was satisfactory. Anteriorly the anterior room was thin I thought and I think this was her primary location of where so we were very careful with our preparation to avoid reaming out the front. Reaming was commenced under fluoroscopic guidance medialized and to the medial wall with the 44 and gradually reaming up to the 49. I could tell that that the 50 was going to be a proper size. We lightly reamed with the 50 Reamer and chose the emphasis cup after seen and acceptable fit with the trial. The size 50 Depuy emphasis cup was impacted and fully seated and had a nice friction fit. Cup was placed at 40? of abduction and anteversion such that the anterior rim of the cup placed just under the anterior rim of the acetabulum. Her bone quality was little bit on the softer side there and the fit was very adequate for softer bone. A single screw was placed into the ilium for additional fixation. The 36 inner diameter poly of we liner was placed. The The leg was externally rotated extended and with the table hook in place femur was exposed. Cancellous bone the femur was the softer side. Bone density preoperatively showed osteopenia but not osteoporosis. The medial neck cortical bone was thick. We broached up to an Actis size 7. We trialed with a +5 standard neck which was what we templated to and found that we had equal leg lengths and offset under fluoro AP pelvis and there was excellent soft tissue tension but ample Shuck. The 7 broach did have a little bit wiggle and we removed it and went up the size 8 which took a while the seat fully and we sunk this a mm below the level of the previous broach and this had complete torsional stability and filled her proximal femur very well. We trialed again and
--- NOTE | 2022-12-27 16:17 | PM.OP ---
Procedure Note - Brief Procedure Note - Brief Date of procedure: 12/27/22 O A Lt Hip Procedure performed: Left anterior total hip arthroplasty Surgeon: LUDA Paredes Findings: 67-year-old female underwent left anterior total hip arthroplasty on 12/27. I was involved procedure including positioning patient on the OR table as well as 1st assisting to the time of surgery. Total time spent was 3 hours
[2022-12-27] MEDS: KETOROLAC 15 MG/ML VIAL (*BKC) IV PUSH ×2 (16:45→22:43)
[2022-12-27] MEDS: fentaNYL CITRATE INJ (*CRX) 100 MCG/2 ML VIAL 25 MCG IV PUSH (17:25)
--- NOTE | 2022-12-27 17:54 | PC.NURSE ---
This patient, Ruma Floyd, was admitted to [facility] Surg Room 310-01 on 12/27/22 @ 2285. Patient/family oriented to hospital policies and general routines including ID bracelet, bed and alarms, visiting hours, pain management, procedures, bathroom and other care routines, personal items, smoking policy, room service/diet, and visiting hours. Information on how to activate the Rapid Response Team has been discussed. Patient/Family are encouraged to report perceived risks to care and to ask questions if they do not understand what they are told or what they should do.
[2022-12-27] MEDS: SENNA/DOCUSATE SODIUM TABLET 2 TAB PO (19:40)
[2022-12-27] MEDS: oxyCODONE HCL (*CRX) 5 MG TAB IR PO ×2 (19:40→22:43)
[2022-12-27] MEDS: CARBAMAZEPINE XR 200 MG TAB.ER.12H PO (20:54)
[2022-12-27] MEDS: FAMOTIDINE 20 MG TABLET PO (20:55)
[2022-12-27] MEDS: VANCOMYCIN 1,000 MG/NS 250 ML 1,000 MG/250 ML BAG 125 MG IVPB (22:42)
[2022-12-28] VITALS: BP 107/45; PULSE 82; RESP 14; TEMP 36.2; O2SAT 100
[2022-12-28] MEDS: ACETAMINOPHEN 500 MG TABLET 1000 MG PO ×3 (01:08→11:40)
[2022-12-28] MEDS: ceFAZolin 1 GM/NS 50 ML 1 GM/50 ML BAG IVPB ×3 (01:09→15:08)
[2022-12-28] MEDS: oxyCODONE HCL (*CRX) 5 MG TAB IR PO ×4 (02:59→15:08)
[2022-12-28] MEDS: PHARMACIST COMMUNICATION ORDER 1 EACH XX (03:01)
[2022-12-28 04:00] VITALS: BP 110/51; PULSE 77; RESP 16; TEMP 36.5; O2SAT 100
[2022-12-28 06:26] LABS: Basophils Percent Auto 0.3 % (0.2-1.2); Eosinophils Percent Auto 0.3 % (0-4.4); Hematocrit 27.9 % (37.0-47.0); Immature Granulocyte Absolute 0.05 K/mm3 (0.00-0.031); Immature Granulocyte Percent A 0.5 % (0-0.5); Lymphocytes Percent Auto 19.5 % (18.3-44.2); Mean Corpuscular HGB Conc 32.3 g/dl (32-36); Mean Corpuscular Hemoglobin 29.7 pg (26-34); Mean Corpuscular Volume 92.1 fl (80-100); Monocytes Percent Auto 10.4 % (2.6-8.5); Neutrophils Absolute Auto 6.4 K/mm3 (1.3-6.7); Platelet Count Result 209 k/mm3 (150-375); Red Blood Count 3.03 M/mm3 (4.2-5.4); Red Cell Distribution Width 11.9 % (11.5-14.5); White Blood Count 9.2 K/mm3 (4.5-10.0)
[2022-12-28 06:38] LABS: Anion Gap 4 mmol/L (8-16); Blood Urea Nitrogen 13 mg/dL (7-17); Calcium 8.2 mg/dL (8.4-10.2); Carbon Dioxide 26 mmol/L (22-30); Chloride 104 mmol/L (98-107); Estimated CRCL calculation 70 ml/min; Estimated Glomerular Filt Rate > 60; Glucose 98 mg/dL (65-110); Potassium 3.6 mmol/L (3.4-5.0); Sodium 134 mmol/L (137-145)
--- NOTE | 2022-12-28 07:19 | PM.PNORT ---
Subjective Subjective Date/Time Seen: 12/28/22 07:19 Interval history: Postop day 1 patient is alert. She is afebrile vital signs are stable. Morning labs are noted. She was standing last night at bedside. She has not been ambulating yet. She did get up to the floor later last night. Her drain is out. Neurovascularly she is intact. Pain is well controlled. Patient is comfortable and is eager to go home. Will have patient work with therapy this morning and then again this afternoon. Once IV antibiotics have been completed she will be discharged home. Objective Data Vital Signs Vital Signs: Vital Signs - 24 hr 12/27/22 11:04 12/27/22 16:11 12/27/22 16:35 Temperature 36.8 C 37.1 C Pulse Rate 93 95 Respiratory Rate 18 12 Blood Pressure 140/58 L 133/67 Pulse Oximetry 100 100 Oxygen Delivery Simple Face Mask Room Air Oxygen Flow Rate 6 12/27/22 16:40 12/27/22 16:25 12/27/22 16:55 Temperature Pulse Rate 90 96 92 Respiratory Rate 14 14 14 Blood Pressure 123/84 141/68 H 130/71 Pulse Oximetry 100 100 99 Oxygen Delivery Room Air Simple Face Mask Room Air Oxygen Flow Rate 6 12/27/22 17:10 12/27/22 17:25 12/27/22 17:35 Temperature 36.6 C Pulse Rate 94 91 93 Respiratory Rate 14 14 14 Blood Pressure 145/70 H 134/68 131/65 Pulse Oximetry 99 99 96 Oxygen Delivery Room Air Room Air Room Air Oxygen Flow Rate 12/27/22 18:55 12/27/22 21:11 12/27/22 17:36 Temperature 37.1 C Pulse Rate 105 H 93 Respiratory Rate 17 14 Blood Pressure 121/42 L 131/65 Pulse Oximetry 99 96 Oxygen Delivery Room Air Oxygen Flow Rate 12/28/22 00:00 12/28/22 04:00 Temperature 36.2 C L 36.5 C Pulse Rate 82 77 Respiratory Rate 14 16 Blood Pressure 107/45 L 110/51 L Pulse Oximetry 100 100 Oxygen Delivery Oxygen Flow Rate Intake/Output Intake/Output: Intake & Output 12/25/22 12/26/22 12/27/22 12/28/22 23:59 23:59 23:59 23:59 Intake Total 700 600 Output Total 215 Balance 700 385 Meds/Results Medications: Active Medications Generic Name Dose Route Start Last Admin Trade Name Freq PRN Reason Stop Dose Admin Acetaminophen 1,000 mg 12/27/22 18:00 12/28/22 06:18 Acetaminophen 500 Mg Tablet PO 1,000 mg Q6HR NEDA Administration Apixaban 2.5 mg 12/28/22 09:00 Apixaban 2.5 Mg Tablet PO Q12HR NEDA Carbamazepine 200 mg 12/27/22 21:00 12/27/22 20:54 Carbamazepine Xr 200 Mg Tab.Er.12h PO 200 mg Q12HR NEDA Administration Cefdinir 300 mg 12/28/22 09:00 Cefdinir 300 Mg Capsule PO Q12HR NEDA Celecoxib 200 mg 12/28/22 09:00 Celecoxib 200 Mg Capsule PO DAILY NEDA Ergocalciferol 50,000 units 12/27/22 17:36 Ergocalciferol 50,000 Units Capsule PO .COMPLEX NEDA Famotidine 20 mg 12/27/22 21:00 12/27/22 20:55 Famotidine 20 Mg Tablet PO 20 mg Q12HR NEDA Administration Hydroxyzine HCl 50 mg 12/27/22 17:36 Hydroxyzine Hcl 25 Mg Tablet PO Q4H PRN Itching Cefazolin Sodium 1 gm in 50 mls @ 100 mls/hr 12/28/22 00:00 12/28/22 01:39 Ancef 1 Gm/Ns 50 Ml IVPB 12/28/22 16:29 Infused Q8H NEDA Infusion Vancomycin HCl 1,000 mg in 250 mls @ 250 mls/hr 12/27/22 22:00 12/28/22 00:42 Vancomycin 1,000 Mg/Ns 250 Ml IVPB 12/28/22 10:59 Infused Q12H [facility] Infusion Sodium Chloride 1,000 mls @ 125 mls/hr 12/27/22 17:36 Normal Saline Iv IV CONT .Q8H [facility] Miscellaneous Information 1 each 12/27/22 00:01 Ergocalciferol Needs Date Of When Next Dose Due XX 01/26/23 00:00 CLARIFY NEDA Morphine Sulfate 2 mg 12/27/22 17:36 Morphine Sulfate (*Crx) 2 Mg/Ml Inj IV PUSH Q3H PRN Pain Rated 7-10 Naloxone HCl 0.1 mg 12/27/22 17:36 Naloxone Hcl 0.4 Mg/Ml Vial IV PUSH Q2M PRN Opiate Reversal Ondansetron HCl 4 mg 12/27/22 17:36 Ondansetron Inj 4 Mg/2 Ml Vial IV PUSH Q4H PRN Nausea And Vomiting Oxycodone HCl 5 mg 12/27/22 17:36 Oxycodone Hc
--- NOTE | 2022-12-28 07:24 | PM.DS ---
DS: Admitting Diagnosis Discharge Date 12/28 Admitting Diagnosis Left hip DJD DS: Discharge Diagnosis Discharge Diagnosis (1) Hip arthritis: Code(s): M16.10 - Unilateral primary osteoarthritis, unspecified hip Status: Acute DS: Summary Hospital Course Hospital Course: [age]-year-old female who underwent left anterior total hip arthroplasty on 12/27. Underwent the procedure without complications. Postoperatively she has been afebrile vital signs are stable neurovascularly she is intact. She is weight-bearing as tolerated but is required to use a walker for 1 month. We had do some bone grafting of her acetabulum therefore going to have her use a walker from month. She is on Eliquis for DVT prophylaxis. Pain is well controlled with scheduled Tylenol as well as oxycodone 5 mg. Patient was awake and alert postop day 1. She had been standing at bedside the evening of postop day 1. Patient will work with therapy on postop day 1 and plan to discharge home on 12/28. Patient was advised to keep leg elevated at home to prevent swelling. She will go home with a 10 day course of Celebrex 200 mg as well as Omnicef for of week. She will also go home with Senokot and MiraLax. Patient was advised any questions or concerns she is to call the office otherwise we will see her at her appointments. Patient's drain was removed on the morning of postop day 1. Wound incision was dry and intact. Time Spent with Patient Time attestation: Total time spent providing and/or coordinating discharge services: DS: Data Data Completed and Pending Labs on day of discharge: Labs from last 24 hours 12/28/22 12/27/22 05:41 10:52 WBC 9.2 RBC 3.03 L Hgb 9.0 L D Hct 27.9 L MCV 92.1 MCH 29.7 MCHC 32.3 RDW 11.9 Plt Count 209 MPV 10.0 Immature Gran % (Auto) 0.5 Neut % (Auto) 69.0 Lymph % (Auto) 19.5 [place] % (Auto) 10.4 H Eos % (Auto) 0.3 Baso % (Auto) 0.3 Lymph # (Auto) 1.80 [place] # (Auto) 1.0 H Eos # (Auto) 0.0 Baso # (Auto) 0.0 Abs Immat Gran (auto) 0.05 H Absolute Neuts (auto) 6.4 Absolute Nucleated RBC 0.0 Nucleated RBC % 0.0 Sodium 134 L Potassium 3.6 Chloride 104 Carbon Dioxide 26 Anion Gap 4 L BUN 13 Creatinine 0.70 Estim Creat Clear Calc 70 Estimated GFR > 60 Glucose 98 Calcium 8.2 L Blood Type O Positive Antibody Screen Negative Discharge Plan Discharge Patient Disposition: Home, Self-Care Discharge Instructions: [facility]DSON [facility], [place] [id number] [place] [address] POST-OPERATIVE DISCHARGE INSTRUCTIONS ANTERIOR TOTAL HIP ARTHROPLASTY 1. Move toes/feet up and down every hour while awake. 2. Be up walking every hour while awake. 3. Use cane in hand opposite of side of hip surgery or walker as comfort allows. Avoid sitting in a chair unless eating, receiving visitors or using the toilet. 4. When resting, lie on back with leg elevated above heart to minimize swelling. Significant swelling could indicate a blood clot and if this occurs, call the office (or go to the ER) to have a venous ultrasound performed. 5. Wound Care: Keep dry sponge on wound for 2 weeks. Use minimal tape. 6. Follow weight bearing status as instructed. 7. May shower with dressing off. 8. Patient is to use walker for 1 month Patient Instructions: Total Hip Replacement (GEN) Follow-up/Referrals: Edson Tong MD [Physician] - Keep Reg. Scheduled Appt. Discharge Medications: New acetaminophen 500 mg Tablet 1,000 mg PO Q6HR Qty: 90 0RF Eliquis 2.5 mg Tablet 2.5 mg PO Q12HR Qty: 70 0RF celecoxib [Celebrex] 200 mg Capsule 200 mg PO DAILY Qty: 10 0RF sennosides-docusate sodium [Senokot-S] 8.6-50 mg Tablet 2 tab-cap PO BID Qty: 60 0RF cefdinir 300 mg Capsule 300 mg PO Q12HR Qty: 14 0RF polyethylene glycol 3350 [Miralax] 17 gram Powder
[2022-12-28 08:00] VITALS: BP 118/57; PULSE 83; RESP 16; TEMP 36.4; O2SAT 98
[2022-12-28] MEDS: APIXABAN 2.5 MG TABLET PO (08:02)
[2022-12-28] MEDS: FAMOTIDINE 20 MG TABLET PO (08:02)
[2022-12-28] MEDS: ROSUVASTATIN 10 MG TABLET PO (08:02)
[2022-12-28] MEDS: SENNA/DOCUSATE SODIUM TABLET 2 TAB PO (08:02)
[2022-12-28] MEDS: CARBAMAZEPINE XR 200 MG TAB.ER.12H PO (08:02)
[2022-12-28] MEDS: CELECOXIB 200 MG CAPSULE PO (08:02)
[2022-12-28] MEDS: polyethylene glycoL 3350 17 GM POWD.PACK PO (08:02)
[2022-12-28] MEDS: CEFDINIR 300 MG CAPSULE PO (08:02)
[2022-12-28] MEDS: VANCOMYCIN 1,000 MG/NS 250 ML 1,000 MG/250 ML BAG 250 MG IVPB (10:08)
[2022-12-28 12:00] VITALS: BP 101/44; PULSE 78; RESP 16; TEMP 36.4; O2SAT 100
--- NOTE | 2022-12-28 13:15 | WPDANESPN ---
Anes - Prog Note Post-Op Date/Time: 12/28/22 13:15 Vital Signs: Last Vital Signs Temp 36.4 C 12/28/22 12:00 Pulse 78 12/28/22 12:00 Resp 16 12/28/22 12:00 BP 101/44 L 12/28/22 12:00 Pulse Ox 100 12/28/22 12:00 O2 Del Method Room Air 12/28/22 09:13 O2 Flow Rate 6 12/27/22 16:25 Pain Score (VAS): 0 I/O: Intake & Output 12/27/22 12/28/22 12/28/22 23:59 07:59 15:59 Intake Total 650 600 940 Output Total 215 100 Balance 650 385 840 Laboratory Tests 12/28/22 05:41 12/28/22 05:41 12/28/22 05:41 WBC 9.2 RBC 3.03 L Hgb 9.0 L D Hct 27.9 L MCV 92.1 MCH 29.7 MCHC 32.3 RDW 11.9 Plt Count 209 MPV 10.0 Immature Gran % (Auto) 0.5 Neut % (Auto) 69.0 Lymph % (Auto) 19.5 [place] % (Auto) 10.4 H Eos % (Auto) 0.3 Baso % (Auto) 0.3 Lymph # (Auto) 1.80 [place] # (Auto) 1.0 H Eos # (Auto) 0.0 Baso # (Auto) 0.0 Abs Immat Gran (auto) 0.05 H Absolute Neuts (auto) 6.4 Absolute Nucleated RBC 0.0 Nucleated RBC % 0.0 Sodium 134 L Potassium 3.6 Chloride 104 Carbon Dioxide 26 Anion Gap 4 L BUN 13 Creatinine 0.70 Estim Creat Clear Calc 70 Estimated GFR > 60 Glucose 98 Calcium 8.2 L Patient Feedback: Patient satisfied with anesthetic care.
== END 2022-12-28 16:25 | disposition home or self-care (01) ==
LOC: ANHSURGERY 12:30 → ANH3MEDSUR 17:47
PROVIDERS: Physician Assistant Surgical; PCP Family Medicine; Visit Provider Orthopaedic Surgery
PROC: (CPT 27130; principal; 2022-12-27 12:00)
DX: M16.12 Unilateral primary osteoarthritis, left hip (principal); G40.909 Epilepsy, unspecified, not intractable, without status epilepticus; E78.5 Hyperlipidemia, unspecified; E55.9 Vitamin D deficiency, unspecified
CPT/HCPCS: 27130; 36415; 73501; 80048; 80156; 80307; 82040; 83036; 85025; 86850; 86900; 86901; 87081; 93005; 97110; 97161; 97165; 97530; 97535; 99199; A9270; C1776; J0171; J0690; J1100; J1170; J1885; J2250; J2270; J2405; J2704; J2795; J3010; J3370; J7120

== ENCOUNTER 2023-02-21 10:32 | Outpatient (CLI) | payer MEDICARE, SELFPAY ==
--- NOTE | ~2023-02-21 | US_ITS ---
EXAMINATION: US venous doppler [facility] DATE: 02/21/2023 11:19 INDICATION: Left lower limb edema. TECHNIQUE: Grayscale ultrasound images without and with compression and Doppler ultrasound images of the left lower extremity veins were obtained. COMPARISON: Ultrasound 09/18/2013 FINDINGS: The visualized portions of left common femoral vein, profunda (deep) femoral vein, femoral vein, popl iteal vein, peroneal veins, posterior tibial veins, and greater saphenous vein outflow are patent. IMPRESSION: 1. No deep venous thrombosis. Reviewed, dictated and finalized at location A. [employer]OLOGIST [employer]
== END 2023-02-21 10:33 | disposition home or self-care (01) ==
PROVIDERS: PCP Family Medicine; Visit Provider Orthopaedic Surgery
DX: R60.0 Localized edema (principal)
CPT/HCPCS: 93971

== ENCOUNTER 2023-06-12 11:48 | Outpatient (CLI) | payer MEDICARE, SELFPAY ==
[2023-06-12 13:21] LABS: Basophils Percent Auto 0.6 % (0.2-1.2); Eosinophils Percent Auto 0.6 % (0-4.4); Hematocrit 35.2 % (37.0-47.0); Hemoglobin 11.3 g/dL (12.0-15.0); Immature Granulocyte Absolute 0.01 K/mm3 (0.00-0.031); Immature Granulocyte Percent A 0.2 % (0-0.5); Lymphocytes Absolute Auto 1.39 K/mm3 (0.9-3.2); Lymphocytes Percent Auto 25.7 % (18.3-44.2); Mean Corpuscular HGB Conc 32.1 g/dl (32-36); Mean Corpuscular Hemoglobin 29.2 pg (26-34); Mean Platelet Volume 9.4 fl (7.4-10.4); Monocytes Absolute Auto 0.5 K/mm3 (0.1-0.6); Monocytes Percent Auto 8.3 % (2.6-8.5); Neutrophils Absolute Auto 3.5 K/mm3 (1.3-6.7); Neutrophils Percent Auto 64.6 % (45.5-73.1); Platelet Count Result 281 k/mm3 (150-375); Red Blood Count 3.87 M/mm3 (4.2-5.4); Red Cell Distribution Width 12.7 % (11.5-14.5); White Blood Count 5.4 K/mm3 (4.5-10.0)
[2023-06-12 13:33] LABS: Albumin Level 4.2 g/dL (3.5-5.1); Anion Gap 6 mmol/L (4-12); Blood Urea Nitrogen 15 mg/dL (7-17); Calcium 9.1 mg/dL (8.4-10.2); Carbon Dioxide 29 mmol/L (22-30); Chloride 101 mmol/L (98-107); Estimated Glomerular Filt Rate > 60; Glucose 90 mg/dL (65-110); Potassium 3.9 mmol/L (3.4-5.0); Sodium 136 mmol/L (137-145)
[2023-06-12 14:11] LABS: Urine Cotinine NEGATIVE
[2023-06-12 14:32] LABS: Hemoglobin A1C 5.3 % (<5.7)
[2023-06-15 15:33] LABS: Carbamazepine Tegretol 6.4 mcg/mL (4.0-12.0)
== END 2023-06-12 11:49 | disposition home or self-care (01) ==
LOC: ANHSURGERY 11:54
PROVIDERS: PCP Family Medicine; Visit Provider Orthopaedic Surgery
DX: Z01.818 Encounter for other preprocedural examination (principal); M16.11 Unilateral primary osteoarthritis, right hip
CPT/HCPCS: 80048; 80156; 80307; 82040; 83036; 85025; 86850; 86900; 86901; 87081

== ENCOUNTER 2023-06-19 01:32 | Day surgery (SDC) | payer MEDICARE, SELFPAY ==
[2023-06-12 12:15] VITALS: BMI 27.2
--- NOTE | 2023-06-12 12:32 | PC.NURSE ---
Report to the Outpatient Waiting Room, entrance under the green pavilion located off [facility], at time __6:00AM on date __06/19/23 . Planned Procedure Time: __7:30AM . Time changes happen often and if your time is changed the preop area will call you the afternoon before. - You and your visitor will be asked to self-screen and do not enter if you have any COVID symptoms. - A mask is optional within the hospital at this time. Patients may have clear liquids (water, carbonated beverages, clear teas, apple juice) until 3 hours prior to surgery with a maximum of 20 ounces. - No food from midnight until time of surgery. Take the following medications with a SIP of water the morning of surgery: ____CARBAMAZEPINE. CAN HAVE TRAMADOL NEEDED FOR PAIN DO NOT STOP ANY OF YOUR OTHER PRESCRIPTION MEDICATIONS PRIOR TO SURGERY ?EXCEPT THE FOLLOWING Medications to discontinue per physician ____HOLD ALL VITAMINS/SUPPLEMENTS 3 DAYS PRE-OP PER ANESTHESIA- LAST DOSE-06/15/23. HOLD MELOXICAM 7 DAYS PRE-OP PER DR SIMPSON- LAST DOSE- 06/11/23____ Please no make-up, nail ivorian, hairspray, perfume, deodorant, or body powder the day of surgery. No jewelry (including any body piercings) or valuables the day of surgery, leave them at home. Please take a shower or bath the night before, or the morning of, surgery with an antibacterial soap. Wear comfortable, loose fitting clothing. - Jewelry must be removed prior to entering the operating room. Rings and piercings that are not removed may be cut off. - The hospital will not accept responsibility for valuables. - Please leave all valuables, including medications, at home the day of surgery. If you are going home after surgery, a licensed shuttle van driver must drive you home. - NO public transportation without another adult if you receive anesthesia. - We recommend that an adult stay with you for 24 hours following discharge. - We also recommend that you do not drive, make important decision, drink alcoholic beverages, or take any drugs that were not prescribed by your health care provider for at least 24 hours after your discharge time. Follow any additional instructions given to you from your surgeon. If you or anyone in your household have experienced Covid symptoms in the past week, please notify your surgeon or the nurse liaison at the phone number below for possible testing. Telephone instructions given to ___PATIENT and asked if any additional questions and then verbalized understanding. Patient advised to call surgeon office or pre surgery nurse liaison [phone] if any additional questions.
[2023-06-12 12:55] VITALS: BP 131/56; PULSE 74; RESP 16; TEMP 37.7; O2SAT 97
--- NOTE | 2023-06-18 13:59 | PM.IMHP ---
H&P: HPI History of Present Illness Date/Time: 06/18/23 13:59 Chief Complaint: pain right due to osteoarthritis right hip Narrative: patient is [age]-year-old female who has had severe pain in her right hip for more than 6 months. She has advanced type 1 osteoarthritis of the right hip. Over last 3 months her symptoms have become much more painful limiting her walking requiring that she use a cane full-time to tolerate the pain with her limited ambulation. She has been taking meloxicam 15 mg daily and more recently she was started on tramadol. Pain is in the groin and lateral aspect of her hip lately her right knee has been starting to get painful. She underwent left total hip arthroplasty December 27, 2022 and has done well with that. She had abduction weakness on the left hip an MRI scan was obtained at that time which showed atrophy of the gluteus minimus bilaterally normal gluteus medius bilaterally no evidence of abductor tendon tears. [facility] Past Medical History Medical History (Updated 06/18/23 @ 14:01 by Edson Tong MD) History of 1 spontaneous Hyperlipemia Seizure disorder Vitamin D deficiency Surgical History Surgical History (Updated 06/11/23 @ 13:20 by Mariana Ramirez [facility]) History of section History of foot surgery S/P hip replacement Left MILAD- Alycia Family History Family History (Reviewed 03/22/23 @ 09:25 by Ana Schmid [facility]) Mother Patient's mother is in good health Father Patient's father is in good health Sibling Family history of diabetes mellitus in first degree relative Diabetes mellitus Social History Social History (Updated 06/11/23 @ 13:17 by Paula Gresham [facility]) Smoking status: Never smoker Second hand tobacco smoke exposure: No Alcohol intake: never Substance use: never Substance use type: does not use Do You Feel Safe in your Home?: Yes Lack of Transportation: No Lack of Food: Never True Current Housing: I Have Housing Concerned About Future Housing: No Difficulty Paying Gas/Electric Bills: No Difficulty Paying for Meds: No Currently Unemployed: No Education: Bachelor's Degree Difficulty w/ Childcare or Family Care: No Living arrangements: with family Additional living arrangements comments: DAUGHTER Occupation/Education: retired Gender identity (if verbalized by the patient): Female Spiritual care concerns: No Meds Home Medications and Allergies Allergies Allergy/AdvReac Type Severity Reaction Status Date / Time Penicillins Allergy Severe Hives, RASH Verified 06/12/23 12:06 Exam Narrative: On examination the patient is alert and oriented in no acute distress. She walks with a moderate limp using a cane left hand. She has a 5 degree flexion contracture of the right hip and flexion to 105 with groin greater than lateral hip pain. The right leg appears to be 4 mm shorter than left well-aligned supine. She has almost no rotation at 90? of flexion fixed at 5? of external rotation and pain with Stinchfield maneuver groin and lateral hip. She does have mild weakness with side lying abduction and moderate diffuse tenderness over the greater trochanter. Skin in the groin and hip area and lower extremity looks normal no lower extremity edema. 2+ dorsalis pedis and posterior tibial artery pulses were palpable. She had normal sensation. She has mild valgus alignment to the right knee with range of motion 5-130 degrees with no effusion in the right knee or medial or lateral joint line tenderness. H&P: Results Imaging hip xray: My impression: X-rays right hip and AP pelvis demonstrate severe [id number] type 1 osteoarthritis of the right hip. Incidental note is made of left total hip arthroplasty without radiographic complication. Assessment and Plan Assessment and plan (1) Osteoarthritis of right hip: Qualifiers: Osteoarthritis type: primary Qualified Code(
[2023-06-19] VITALS (12 sets, daily range): BP systolic 105–147; BP diastolic 38–70; PULSE 79–102; RESP 12–21; TEMP 36.2–37.1; O2SAT 97–100
--- NOTE | ~2023-06-19 | XR_ITS ---
EXAMINATION: XR hip RT min 2V DATE: 06/19/2023 12:50 INDICATION: Status post right total hip arthroplasty. TECHNIQUE: Anteroposterior and crosstable lateral views of the right hip were obtained. COMPARISON: None. FINDINGS: Bilateral noncemented total hip arthroplasties which are in near anatomic alignment. No fractures. Sm all amount of lucent postoperative gas about the right hip. Mild osteoarthritis at the bilateral sacr oiliac joints. A few calcifications project over the left sacral suggestive of a degenerated uterine fibroid. IMPRESSION: 1. Bilateral total hip arthroplasties in near-anatomic alignment. No acute osseous abnormality. Reviewed, dictated and finalized at location B. IMPRESSION: 1. Bilateral total hip arthroplasties in near-anatomic alignment. No acute osse ous abnormality.
--- NOTE | ~2023-06-19 | XR_ITS ---
EXAMINATION: XR surgery orthopedic DATE: 06/19/2023 11:37 INDICATION: Anterior approach right total hip arthroplasty TECHNIQUE: 2 fluoroscopic images of the right hip were obtained during procedure performed by Dr. Sal bauer. Radiologist was not present for the imaging or procedure. The amount of fluoroscopy time used d uring this procedure was 0.8 minutes. COMPARISON: 01/24/2023 FINDINGS: Images demonstrate placement of a a noncemented right total hip arthroplasty which appears well seate d in near-anatomic alignment. Acetabular component is affixed with at least a single screw. No fractu re visualized bones. IMPRESSION: 1. Expected appearance of a newly placed right total knee arthroplasty in near-anatomic alignment. Se e procedure note for further detail. Reviewed, dictated and finalized at location B. IMPRESSION: 1. Expected appearance of a newly placed right total knee arthroplasty in near- anatomic alignment. See procedure note for further detail.
[2023-06-19] MEDS: LACTATED RINGERS 1,000 ML 30 ML IV CONT ×2 (06:25→12:21)
[2023-06-19] MEDS: VANCOMYCIN 1,250 MG/NS 250 ML BAG 166.67 MG IVPB (06:31)
--- NOTE | 2023-06-19 06:51 | WPDHPUPDATE1 ---
History and Physical Update Update Date/Time: 06/19/23 06:51 History and Physical has been reviewed, including an updated exam of the patient. There are NO changes in the patient's condition. Risks, benefits, and alternatives have been discussed and questions answered. Patient agrees to proceed with procedure.
--- NOTE | 2023-06-19 07:01 | WPDANESEPPF ---
Anes - Initial Pre Proc Eval Procedure: Operation Date: 06/19/23 07:30 Proposed Procedures p Right Total Hip Arthroplasty, Anterior Approach - Edson Tong MD Date/Time: 06/19/23 07:01 Surgeon: Edson Tong MD Pre Op Diagnosis: O A Right Hip Patient Data Age: 68 Gender: F Height: 1.75 m Weight: 82.6 kg Last Vital Signs Temp 98.6 F 06/19/23 06:15 Pulse 79 06/19/23 06:15 Resp 16 06/19/23 06:15 BP 147/60 H 06/19/23 06:15 Pulse Ox 100 06/19/23 06:15 O2 Del Method Room Air 06/19/23 06:15 Allergies Allergy/AdvReac Type Severity Reaction Status Date / Time Penicillins Allergy Severe Hives, RASH Verified 06/12/23 12:06 Home Medications Medication Instructions Recorded Confirmed Type ergocalciferol (vitamin D2) 1,250 50,000 unit PO .COMPLEX Vitamin d 10/24/22 06/12/23 Rx mcg (50,000 unit) capsule (Vitamin deficiency #9 caps D2) rosuvastatin 10 mg tablet (Crestor) 10 mg PO DAILY #90 tabs 02/22/23 06/19/23 Rx meloxicam 15 mg tablet 15 mg PO DAILY 03/22/23 06/19/23 History hydroxyzine HCl 25 mg tablet See Rx Instructions .Route 05/07/23 06/19/23 Rx .COMPLEX #60 tabs tramadol 50 mg tablet 50 mg PO Q6H PRN Pain 06/11/23 06/19/23 History Lactobac 51-Bifidobac 1 cap PO DAILY 06/12/23 06/19/23 History 3-L.lactis-S.thermophilus 4 billion cell capsule (Daily Probiotic (10 Strains)) acetaminophen 500 mg capsule 1,000 mg PO Q6H PRN Pain 06/12/23 06/19/23 History ascorbic acid (vitamin C) 250 mg 250 mg PO DAILY 06/12/23 06/19/23 History tablet calcium carb,citrat 500 1 tablet PO DAILY 06/12/23 06/19/23 History mg-magnesium #12 250 mg-vit D3 200 unit tablet carbamazepine 200 mg 200 mg PO BID 06/12/23 06/19/23 History tablet,extended release,12 hr coenzyme Q10 100 mg capsule (Co 100 mg PO DAILY 06/12/23 06/19/23 History Q-10) psyllium husk 3.4 gram/5.4 gram 1 tbsp PO DAILY 06/12/23 06/19/23 History oral powder (Metamucil) Patient hx anesthesia problems: none Family hx anesthesia problems: none Results Review: All pre-operative results and documents have been reviewed as part of the pre-operative evaluation. [facility] Past Medical History Medical History (Updated 06/18/23 @ 14:01 by Edson Tong MD) History of 1 spontaneous Hyperlipemia Seizure disorder Vitamin D deficiency Surgical History Surgical History (Updated 06/11/23 @ 13:20 by Mariana Ramirez [facility]) History of section History of foot surgery S/P hip replacement Left MILAD- Alycia Family History Family History Mother Patient's mother is in good health Father Patient's father is in good health Sibling Family history of diabetes mellitus in first degree relative Diabetes mellitus Social History Social History (Updated 06/11/23 @ 13:17 by Paula Gresham [facility]) Smoking status: Never smoker Second hand tobacco smoke exposure: No Alcohol intake: never Substance use: never Substance use type: does not use Do You Feel Safe in your Home?: Yes Lack of Transportation: No Lack of Food: Never True Current Housing: I Have Housing Concerned About Future Housing: No Difficulty Paying Gas/Electric Bills: No Difficulty Paying for Meds: No Currently Unemployed: No Education: Bachelor's Degree Difficulty w/ Childcare or Family Care: No Living arrangements: with family Additional living arrangements comments: DAUGHTER Occupation/Education: retired Gender identity (if verbalized by the patient): Female Spiritual care concerns: No Anes - Eval Final PreProcedure Day of Procedure 06/19/23 07:01 Patient weight: overweight Heart: regular rate and rhythm Lungs: clear to auscultation Airway: Mallampati scale and special considerations (Upper incisors w small chips noted. ) Neurological: alert and oriented Last oral intake: >/= 8 hours ASA classification
[2023-06-19] MEDS: TRANEXAMIC ACID 1,000MG/ISO100 1,000 MG/100 ML BAG 200 MG IVPB (07:08)
[2023-06-19] MEDS: ceFAZolin 2 GM/D5W 50 ML 2 GM/50 ML BAG IVPB (07:54)
[2023-06-19] MEDS: ceFAZolin SODIUM 1 GM VIAL 3 GM (08:17)
[2023-06-19] MEDS: dexAMETHasone SOD PHOS INJ 4 MG/ML VIAL IV PUSH (08:18)
[2023-06-19] MEDS: SODIUM CHLORIDE 0.9% IV 37.7 ML, MORPHINE SULFATE INJ (*CRX) 2 MG, ROPivacaine HCL 1% 2... INFILTRATE (08:20)
[2023-06-19] MEDS: TRANEXAMIC ACID 1,000 MG/10 ML AMPUL 1000 MG IV PUSH (11:18)
[2023-06-19] MEDS: ceFAZolin SODIUM 1 GM VIAL 2 GM IV PUSH (11:20)
--- NOTE | 2023-06-19 12:09 | W.PM.PROC2 ---
Procedure Note - Detailed Date of Procedure 06/19/23 Pre-op Diagnosis O A Right Hip Post-op Diagnosis Same Procedure Performed Direct anterior approach right total hip arthroplasty Surgeon Edson Tong MD [employer]uan Anesthesia General Description of Procedure Patient was brought to the operating room and general anesthesia was administered. She received 2 g of Ancef weight based vancomycin 1 g tranexamic acid preoperatively. Boots were applied the feet after additional padding applied the feet SCDs applied which were running. She was transferred to the [facility] table and the right hip prepped draped usual fashion. 10 cm longitudinal incision was made 3 cm lateral to the ASIS. Fascia over the TFL was exposed longitudinally incised elevated off the anterior 1/2 of the TFL. Interval between tensor and rectus femoris developed crossing branches of ascending lateral femoral circumflex vessels were ligated with suture divided. Retractor was placed anteromedial to the capsule the hip abducted the gluteus minimus which was replaced by fatty atrophy is elevated off the lateral capsule. The gluteus minimus did have some deep sided peeling but was still attached securely distally. Inverted T capsulotomy was performed femoral neck osteotomy made according to preoperative templating. Femoral head was removed and measured 47 mm in diameter. Acetabulum was exposed labrum excised residual articular cartilage removed. The leg was externally rotated extended and tip the lateral capsular flap excised and interval between piriformis and conjoined tendon was incised which allowed the piriformis to sublux posteriorly. The leg back in a horizontal position acetabulum was exposed. Under fluoroscopic guidance the acetabulum was reamed medialized with a 44 and reaming up to 49 mm and a light reaming with 50. The 50 trial fit appropriately and we chose the size 50 emphasis cup. 8 mm acetabular bone cyst was curetted and packed with our bone graft from the femoral head. The 50 emphasis cup was impacted and the shell was still about 1 or 2 mm proud of the anterior rim. I felt that we could medialized a little bit more and the shell was removed and we medialized the 3 mm with the 49 Reamer the shell was thoroughly irrigated and we really impacted the shell which seated mm under the anterior rim with an excellent Press-Fit 40? of abduction single screw placed in the ilium 36 inner diameter liner placed. Femur was broached up to a size 7. There was no torsional play. We trialed and we could see that we were still a little bit high under fluoro and we countersunk the broach 5 mm and on read trialing with a +536 head standard neck, soft tissue tension was appropriate, there was normal stability in external rotation and leg lengths appropriate matched our preoperative template under fluoroscopic image. Final calcar planing was performed and we confirmed complete torsional stability of the size 7 stem Actis and we impacted the size 7 real Actis stem with standard offset neck which fully seated and trialed again with a +5 found appropriate stability and soft tissue tension and the real +5 x 36 ceramic head was impacted on the clean and dried trunnion after thorough irrigation. Hip was reduced stability reconfirmed. Longitudinal capsular split reapproximated with 2. Vicryl. Local anesthetic cocktail injected the periarticular tissues. Fascia was closed with running 1. Vicryl drain deep in the subcu skin closed with 2 subcutaneous Vicryl. The proximal 2 cm had a little bit of maceration we debrided and I close this portion with 4-0 nylon to give more perfect skin apposition. Remainder of the incision was closed with glue. 2 g of Ancef 1 g of TXA given time wound closure. EBL was estimated at 650 cc the. she was given 225 back as Cell Saver. Patient tolerated the anesthesia well and was transferred postop recovery room in good condition. We will lower to be weight-bear
--- NOTE | 2023-06-19 13:59 | ADMGEN ---
This patient, Ruma Floyd, was admitted to Medical Room 248-. Patient/family oriented to hospital policies and general routines including ID bracelet, bed and alarms, visiting hours, pain management, procedures, bathroom and other care routines, personal items, smoking policy, room service/diet, and visiting hours. Information on how to activate the Rapid Response Team has been discussed. Patient/Family are encouraged to report perceived risks to care and to ask questions if they do not understand what they are told or what they should do.
[2023-06-19] MEDS: oxyCODONE HCL (*CRX) 5 MG TAB IR PO ×3 (14:30→20:43)
[2023-06-19] MEDS: ACETAMINOPHEN 500 MG TABLET 1000 MG PO ×2 (14:30→18:05)
[2023-06-19] MEDS: ceFAZolin 1 GM/NS 50 ML 1 GM/50 ML BAG IVPB (14:31)
[2023-06-19] MEDS: CARBAMAZEPINE XR 200 MG TAB.ER.12H PO (18:04)
[2023-06-19] MEDS: SENNA/DOCUSATE SODIUM TABLET 2 TAB PO (18:05)
[2023-06-19] MEDS: KETOROLAC 15 MG/ML VIAL (*BKC) IV PUSH (18:06)
[2023-06-19] MEDS: VANCOMYCIN 1,000 MG/NS 250 ML 1,000 MG/250 ML BAG 250 MG IVPB (18:41)
[2023-06-20 00:31] VITALS: BP 121/40; PULSE 87; RESP 20; TEMP 36.6; O2SAT 99
[2023-06-20] MEDS: ceFAZolin 1 GM/NS 50 ML 1 GM/50 ML BAG IVPB ×2 (00:45→07:36)
[2023-06-20] MEDS: ACETAMINOPHEN 500 MG TABLET 1000 MG PO ×2 (00:45→05:57)
[2023-06-20] MEDS: KETOROLAC 15 MG/ML VIAL (*BKC) IV PUSH (00:46)
[2023-06-20] MEDS: oxyCODONE HCL (*CRX) 5 MG TAB IR PO ×3 (00:46→08:34)
[2023-06-20 04:40] VITALS: BP 115/46; PULSE 86; RESP 21; TEMP 36.3; O2SAT 100
[2023-06-20 05:11] LABS: Basophils Percent Auto 0.3 % (0.2-1.2); Eosinophils Percent Auto 0.3 % (0-4.4); Hematocrit 29.6 % (37.0-47.0); Hemoglobin 9.5 g/dL (12.0-15.0); Immature Granulocyte Absolute 0.02 K/mm3 (0.00-0.031); Immature Granulocyte Percent A 0.2 % (0-0.5); Lymphocytes Absolute Auto 2.06 K/mm3 (0.9-3.2); Lymphocytes Percent Auto 20.8 % (18.3-44.2); Mean Corpuscular HGB Conc 32.1 g/dl (32-36); Mean Corpuscular Hemoglobin 29.9 pg (26-34); Mean Corpuscular Volume 93.1 fl (80-100); Mean Platelet Volume 9.8 fl (7.4-10.4); Monocytes Absolute Auto 0.9 K/mm3 (0.1-0.6); Monocytes Percent Auto 8.9 % (2.6-8.5); Neutrophils Absolute Auto 6.9 K/mm3 (1.3-6.7); Neutrophils Percent Auto 69.5 % (45.5-73.1); Platelet Count Result 236 k/mm3 (150-375); Red Blood Count 3.18 M/mm3 (4.2-5.4); Red Cell Distribution Width 12.8 % (11.5-14.5); White Blood Count 9.9 K/mm3 (4.5-10.0)
[2023-06-20 05:20] LABS: Anion Gap 5 mmol/L (4-12); Blood Urea Nitrogen 14 mg/dL (7-17); Calcium 8.6 mg/dL (8.4-10.2); Carbon Dioxide 27 mmol/L (22-30); Chloride 105 mmol/L (98-107); Estimated CRCL calculation 69 ml/min; Estimated Glomerular Filt Rate > 60; Glucose 103 mg/dL (65-110); Potassium 3.9 mmol/L (3.4-5.0); Sodium 137 mmol/L (137-145)
[2023-06-20] MEDS: VANCOMYCIN 1,000 MG/NS 250 ML 1,000 MG/250 ML BAG 250 MG IVPB (05:57)
--- NOTE | 2023-06-20 06:49 | PM.DS ---
DS: Admitting Diagnosis Discharge Date 06/20/2023 Admitting Diagnosis Osteoarthritis right hip DS: Discharge Diagnosis Discharge Diagnosis (1) Osteoarthritis of right hip: Qualifiers: Osteoarthritis type: primary Qualified Code(s): M16.11 - Unilateral primary osteoarthritis, right hip Code(s): M16.11 - Unilateral primary osteoarthritis, right hip Status: Acute DS: Summary Hospital Course Hospital Course: Patient underwent direct anterior approach right total hip arthroplasty in the morning of 06/19/2023. She did very well yesterday postoperatively. She has been getting up to go the bathroom on a regular basis in the room. She is very comfortable. Her hemoglobin this morning is 9.5. Platelets [id number]. She has no swelling visible at the hip area or swelling or edema in the right lower extremity. Neurovascular is intact. She feels confident that she will do well at home and would like to be discharged today. Time Spent with Patient Time attestation: Total time spent providing and/or coordinating discharge services: DS: Data Data Completed and Pending Labs on day of discharge: Labs from last 24 hours 06/20/23 04:34 WBC 9.9 RBC 3.18 L Hgb 9.5 L Hct 29.6 L MCV 93.1 MCH 29.9 MCHC 32.1 RDW 12.8 Plt Count 236 MPV 9.8 Immature Gran % (Auto) 0.2 Neut % (Auto) 69.5 Lymph % (Auto) 20.8 [place] % (Auto) 8.9 H Eos % (Auto) 0.3 Baso % (Auto) 0.3 Lymph # (Auto) 2.06 [place] # (Auto) 0.9 H Eos # (Auto) 0.0 Baso # (Auto) 0.0 Abs Immat Gran (auto) 0.02 Absolute Neuts (auto) 6.9 H Absolute Nucleated RBC 0.000 Nucleated RBC % 0.0 Sodium 137 Potassium 3.9 Chloride 105 Carbon Dioxide 27 Anion Gap 5 BUN 14 Creatinine 0.70 Estim Creat Clear Calc 69 Estimated GFR > 60 Glucose 103 Calcium 8.6 Discharge Plan Discharge Patient Disposition: Home, Self-Care Discharge Instructions: MARIANA SIMPSON M.D [facility], [address] [address] POST-OPERATIVE DISCHARGE INSTRUCTIONS ANTERIOR TOTAL HIP ARTHROPLASTY 1. Move toes/feet up and down every hour while awake. 2. Be up walking every hour while awake. 3. You are weight-bearing as tolerated on the right leg. I would recommend using a walker with front wheels for balance to minimize risk of falling. Once you feel your comfort is predictably satisfactory and do feel her balance and equilibrium are good, you may start using a cane in left hand. 4. When resting, do not rest in the chair. Rather, lie on your back, with back flat, and the leg elevated above heart to minimize swelling. You may put a pillow under your head. Do not rest in a chair. Resting in the chair results in swelling in the leg. Significant swelling could indicate a blood clot and if this occurs, call the office (or go to the ER) to have a venous ultrasound performed. Its ok to sit in the chair to eat and use the toilet and to receive a guest but sitting in a chair will cause your leg to swell. so try to minimize sitting in a chair. 5. Wound Care: Apply a folded 4x4 sponge to incision and hold with crossing strips of 1 inch Transpore tape. 6. Follow weight bearing status as instructed: 7. May shower. Remove dressing before shower and reapply dressing after shower. 8. Please have a CBC drawn and [facility] in 5 days to verify that your hemoglobin and platelets are acceptable. Stand Alone Forms: General Discharge Instructions Discharge Medications: New acetaminophen 500 mg Tablet 1,000 mg PO Q6HR Qty: 100 0RF celecoxib [Celebrex] 200 mg Capsule 200 mg PO DAILY@0800 Qty: 10 0RF sennosides-docusate sodium [Senokot-S] 8.6-50 mg Tablet 2 tab-cap PO BID Qty: 120 0RF cefdinir 300 mg Capsule 300 mg PO Q12HR Qty: 14 0RF polyethylene glycol 3350 [Miralax] 17 gram Powder In Packet 17 g PO QAM Qty: 30 0RF oxycodone 5 mg Tablet
[2023-06-20] MEDS: CELECOXIB 200 MG CAPSULE PO (07:38)
--- NOTE | 2023-06-20 07:49 | PM.IMCN ---
Assessment and Plan Assessment and plan (1) History of total hip arthroplasty: Code(s): Z96.649 - Presence of unspecified artificial hip joint Status: Acute Assessment and Plan: total right hip arthroplasty on 06/19/2023. PT and OT per Orthopedics. DVT prophylaxis per Orthopedics. Pain medications per Orthopedics. (2) Hyperlipemia: Qualifiers: Hyperlipidemia type: mixed hyperlipidemia Qualified Code(s): E78.2 - Mixed hyperlipidemia Code(s): E78.5 - Hyperlipidemia, unspecified Status: Acute Assessment and Plan: Continue home medication (3) Seizure disorder: Code(s): G40.909 - Epilepsy, unspecified, not intractable, without status epilepticus Status: Acute Assessment and Plan: continue home medications HPI Date of Consult Consult date: 06/20/23 Requesting Physician: Edson Tong MD Primary Care Provider: Tai Hubbard MD Consult Narrative Narrative: Ruma Floyd is a 68 year old female with a past medical history of seizure disorder, hyperlipidemia, and vitamin-D deficiency that was admitted due to right total hip arthroplasty. Patient with severe pain in her right hip for more than [address] Omalley schedule patient for total hip arthroplasty on 06/19/2023. Patient stayed in the hospital overnight. PT and OT performed with the patient. Pain was well controlled. Discharge home with follow-up with orthopedics. [facility] Past Medical History Medical History History of 1 spontaneous Hyperlipemia Seizure disorder Vitamin D deficiency Surgical History Surgical History History of section History of foot surgery S/P hip replacement Left MILAD- Alycia Family History Family History Mother Patient's mother is in good health Father Patient's father is in good health Sibling Family history of diabetes mellitus in first degree relative Diabetes mellitus Social History Social History Smoking status: Never smoker Second hand tobacco smoke exposure: No Alcohol intake: never Substance use: never Substance use type: does not use Do You Feel Safe in your Home?: Yes Lack of Transportation: No Lack of Food: Never True Current Housing: I Have Housing Concerned About Future Housing: No Difficulty Paying Gas/Electric Bills: No Difficulty Paying for Meds: No Currently Unemployed: No Education: Bachelor's Degree Difficulty w/ Childcare or Family Care: No Living arrangements: with family Additional living arrangements comments: DAUGHTER Occupation/Education: retired Gender identity (if verbalized by the patient): Female Spiritual care concerns: No Meds Home Medications and Allergies Home Medications Medication Instructions Recorded Confirmed Type ergocalciferol (vitamin D2) 1,250 50,000 unit PO .COMPLEX Vitamin d 10/24/22 06/19/23 Rx mcg (50,000 unit) capsule (Vitamin deficiency #9 caps D2) rosuvastatin 10 mg tablet (Crestor) 10 mg PO DAILY #90 tabs 02/22/23 06/19/23 Rx hydroxyzine HCl 25 mg tablet See Rx Instructions .Route 05/07/23 06/19/23 Rx .COMPLEX #60 tabs Lactobac 51-Bifidobac 1 cap PO DAILY 06/12/23 06/19/23 History 3-L.lactis-S.thermophilus 4 billion cell capsule (Daily Probiotic (10 Strains)) ascorbic acid (vitamin C) 250 mg 250 mg PO DAILY 06/12/23 06/19/23 History tablet calcium carb,citrat 500 1 tablet PO DAILY 06/12/23 06/19/23 History mg-magnesium #12 250 mg-vit D3 200 unit tablet carbamazepine 200 mg 200 mg PO BID 06/12/23 06/19/23 History tablet,extended release,12 hr coenzyme Q10 100 mg capsule (Co 100 mg PO DAILY 06/12/23 06/19/23 History Q-10) acetaminophen 500 mg tablet 1,00
--- NOTE | 2023-06-20 07:52 | WPDANESPN ---
Anes - Prog Note Post-Op Date/Time: 06/20/23 07:52 Cardiovascular status: normal Respiratory status: normal Airway patency: baseline Mental status: baseline Post-Op hydration status: normal Vital Signs: Last Vital Signs Temp 36.6 C 06/20/23 00:31 Pulse 87 06/20/23 00:31 Resp 20 06/20/23 00:31 BP 121/40 L 06/20/23 00:31 Pulse Ox 99 06/20/23 00:31 O2 Del Method Room Air 06/19/23 20:00 O2 Flow Rate 06/19/23 12:21 Pain Score (VAS): 04/21 I/O: Intake & Output 06/19/23 06/19/23 06/20/23 15:59 23:59 07:59 Intake Total 500 740 50 Balance 500 740 50 Laboratory Tests 06/20/23 04:34 06/20/23 04:34 06/20/23 04:34 WBC 9.9 RBC 3.18 L Hgb 9.5 L Hct 29.6 L MCV 93.1 MCH 29.9 MCHC 32.1 RDW 12.8 Plt Count 236 MPV 9.8 Immature Gran % (Auto) 0.2 Neut % (Auto) 69.5 Lymph % (Auto) 20.8 [place] % (Auto) 8.9 H Eos % (Auto) 0.3 Baso % (Auto) 0.3 Lymph # (Auto) 2.06 [place] # (Auto) 0.9 H Eos # (Auto) 0.0 Baso # (Auto) 0.0 Abs Immat Gran (auto) 0.02 Absolute Neuts (auto) 6.9 H Absolute Nucleated RBC 0.000 Nucleated RBC % 0.0 Sodium 137 Potassium 3.9 Chloride 105 Carbon Dioxide 27 Anion Gap 5 BUN 14 Creatinine 0.70 Estim Creat Clear Calc 69 Estimated GFR > 60 Glucose 103 Calcium 8.6 Post-procedural complaints: none Patient Feedback: Patient satisfied with anesthetic care.
[2023-06-20] MEDS: CARBAMAZEPINE XR 200 MG TAB.ER.12H PO (08:34)
[2023-06-20] MEDS: ROSUVASTATIN 10 MG TABLET PO (08:34)
[2023-06-20] MEDS: ACIDOPHILUS/BULGARICUS CHEWABLE TABLET 1 TABLET PO (08:34)
[2023-06-20] MEDS: SENNA/DOCUSATE SODIUM TABLET 2 TAB PO (08:34)
[2023-06-20] MEDS: polyethylene glycoL 3350 17 GM POWD.PACK PO (08:34)
[2023-06-20] MEDS: ASCORBIC ACID 250 MG TABLET PO (08:34)
[2023-06-20] MEDS: ENOXAPARIN 40 MG/0.4 ML SYRINGE SUB-Q (08:34)
[2023-06-20] MEDS: CEFDINIR 300 MG CAPSULE PO (08:34)
[2023-06-20 09:30] VITALS: BP 107/33; PULSE 84; RESP 12; TEMP 37; O2SAT 100
== END 2023-06-20 11:33 | disposition home or self-care (01) ==
LOC: ANHSURGERY 06:03 → ANH2MED 13:32
PROVIDERS: PCP Family Medicine; Visit Provider Orthopaedic Surgery
PROC: (CPT 27130; principal; 2023-06-19 07:30)
DX: M16.11 Unilateral primary osteoarthritis, right hip (principal); E78.5 Hyperlipidemia, unspecified; G40.909 Epilepsy, unspecified, not intractable, without status epilepticus; E55.9 Vitamin D deficiency, unspecified
CPT/HCPCS: 27130; 36415; 73502; 80048; 80156; 80307; 82040; 83036; 85025; 86850; 86900; 86901; 87081; 97110; 97161; 97165; 97530; 97535; 99199; A9270; C1776; J0171; J0690; J1100; J1170; J1650; J1885; J2250; J2270; J2405; J2795; J3010; J3370; J7040; J7120

== ENCOUNTER 2023-06-25 06:59 | Outpatient (CLI) | payer MEDICARE, SELFPAY ==
[2023-06-25 07:11] LABS: Hematocrit 29.2 % (35.0-42.0); Hemoglobin 9.4 g/dL (11.7-13.8); Mean Corpuscular HGB Conc 32.2 g/dL (32-36); Mean Corpuscular Hemoglobin 29.4 pg (27.0-31.0); Mean Corpuscular Volume 91.3 fL (78.0-102.0); Mean Platelet Volume 8.7 fl (9.2-11.8); Platelet Count Result 305 K/mm3 (150-420); Red Cell Distribution Width 12.3 % (11.6-14.4); White Blood Count 5.8 K/mm3 (4.8-10.8)
== END 2023-06-25 07:00 | disposition home or self-care (01) ==
LOC: CHSLAB 07:01
PROVIDERS: PCP Family Medicine; Visit Provider Orthopaedic Surgery
DX: Z96.649 Presence of unspecified artificial hip joint (principal)
CPT/HCPCS: 36415; 85027

== ENCOUNTER 2023-07-19 08:12 | Outpatient (CLI) | payer MEDICARE, SELFPAY ==
--- NOTE | ~2023-07-19 | MM_ITS ---
EXAMINATION: MM screening andi BI w xavier HISTORY: Screening mammogram TECHNIQUE: Craniocaudal and mediolateral oblique 3-D tomosynthesis images were obtained and synthetic 2-D images were generated. CAD analysis was submitted and interpreted. COMPARISON: February 02, 2023, March 14, 2021, January 21, 2020 bilateral screening mammogram exami [facility] BREAST PARENCHYMAL COMPOSITION: There are scattered areas of fibroglandular density. FINDINGS: Focal approximately 3 x 5 mm irregular opacity is noted anteriorly in the outer right breas t on craniocaudal view, without definite correlate on the MLO view. Diagnostic right mammogram and ri t breast ultrasound if necessary are recommended to the differentiate composite shadowing of fibrog landular tissue from possible small mass. Otherwise there is no evidence of suspicious mass, calcification, or architectural distortion to sugg est malignancy in either breast. There has been no other suspicious interval change. IMPRESSION: 1. Focal 3 x 5 mm asymmetric opacity situated anteriorly in the outer right breast on CC projection 2. Diagnostic right mammogram is recommended, with ultrasound if required BI-RADS Category 0: Incomplete: Needs additional imaging evaluation. Reviewed, dictated and finalized at location B. IMPRESSION: 1. Focal 3 x 5 mm asymmetric opacity situated anteriorly in the outer right gladys ast on CC projection 2. Diagnostic right mammogram is recommended, with ultrasound if required BI-RADS Category 0: Incomplete: Needs additional imaging evaluation.
== END 2023-07-19 08:13 | disposition home or self-care (01) ==
PROVIDERS: PCP Family Medicine; Visit Provider Obstetrics & Gynecology
DX: Z12.31 Encounter for screening mammogram for malignant neoplasm of breast (principal); R92.8 Other abnormal and inconclusive findings on diagnostic imaging of breast
CPT/HCPCS: 77063; 77067

== ENCOUNTER 2023-08-10 12:17 | Outpatient (CLI) | payer MEDICARE, SELFPAY ==
--- NOTE | ~2023-08-10 | MMUS_ITS ---
EXAMINATION: MM diagnostic andi RT w xavier, US breast RT limited HISTORY: Follow-up right breast asymmetry TECHNIQUE: Additional 3-D tomosynthesis images of the right breast were performed and synthetic 2-D i mages were generated. CAD analysis was submitted and interpreted. High resolution Limited right breas t ultrasound was performed. COMPARISON: Comparison to multiple prior studies sequentially, with oldest reviewed study dated 10/25. BREAST PARENCHYMAL COMPOSITION: Not dense: There are scattered areas of fibroglandular density. FINDINGS: MAMMOGRAPHIC FINDINGS: There are no suspicious masses, calcifications or architectural distortion in the right breast to sug gest malignancy. ULTRASOUND: Limited right breast ultrasound: Normal heterogeneous echotexture without focal solid or cystic mass. IMPRESSION: 1. No evidence for malignancy in the right breast. 2. Routine yearly screening mammogram and regular clinical breast examination are recommended. BI-RADS Category 1: Negative Reviewed, dictated and finalized at location B. IMPRESSION: 1. No evidence for malignancy in the right breast. 2. Routine yearly screening mammogram and regular clinical breast examination a re recommended. BI-RADS Category 1: Negative
== END 2023-08-10 12:18 | disposition home or self-care (01) ==
LOC: ANHIMG 12:22
PROVIDERS: PCP Family Medicine; Visit Provider Obstetrics & Gynecology
DX: R92.8 Other abnormal and inconclusive findings on diagnostic imaging of breast (principal)
CPT/HCPCS: 76642; 77061; 77065; G0279

== ENCOUNTER 2023-10-23 07:00 | Outpatient (CLI) | payer MEDICARE, SELFPAY ==
[2023-10-23 07:13] LABS: Basophils Absolute Auto 0.03 K/mm3 (0.00-0.10); Basophils Percent Auto 0.7 % (0.0-1.0); Eosinophils Absolute Auto 0.06 K/mm3 (0.02-0.50); Eosinophils Percent Auto 1.4 % (1.0-6.0); Hematocrit 35.9 % (35.0-42.0); Hemoglobin 11.9 g/dL (11.7-13.8); Immature Granulocyte Absolute 0.02 K/mm3 (0.00-0.00); Immature Granulocyte Percent A 0.5 % (0.0-0.0); Lymphocytes Percent Auto 30.4 % (18.0-42.0); Mean Corpuscular HGB Conc 33.1 g/dL (32-36); Mean Corpuscular Hemoglobin 29.2 pg (27.0-31.0); Mean Corpuscular Volume 88.2 fL (78.0-102.0); Mean Platelet Volume 9.2 fl (9.2-11.8); Monocytes Absolute Auto 0.24 K/mm3 (0.10-0.90); Monocytes Percent Auto 5.6 % (2.0-11.0); Neutrophils Absolute Auto 2.62 K/mm3 (1.70-7.20); Neutrophils Percent Auto 61.4 % (50.0-70.0); Platelet Count Result 238 K/mm3 (150-420); Red Blood Count 4.07 M/mm3 (4.20-5.40); Red Cell Distribution Width 11.9 % (11.6-14.4); White Blood Count 4.3 K/mm3 (4.8-10.8)
[2023-10-23 07:55] LABS: Alanine Aminotransferase 24 U/L (14-59); Albumin Level 3.5 g/dL (3.4-5.0); Alkaline Phosphatase 105 U/L (46-116); Anion Gap 6 mmol/L (4-12); Aspartate Amino Transferase 24 U/L (15-37); Bilirubin,Total 0.4 mg/dL (0.00-1.00); Blood Urea Nitrogen 11 mg/dL (7-18); Calcium 8.7 mg/dL (8.5-10.1); Carbon Dioxide 31 mmol/L (21-32); Chloride 101 mmol/L (98-108); Cholesterol 195 mg/dL (0-200); Estimated Glomerular Filt Rate > 60; Glucose 90 mg/dL (70-99); HDL Direct 66 mg/dL (40-60); LDL Cholesterol Calculated 117 mg/dL (<130); Osmolality Calculated 285 mOsm/kg (285-295); Potassium 3.9 mmol/L (3.5-5.1); Sodium 138 mmol/L (136-145); Triglycerides 62 mg/dL (0-150)
[2023-10-25 12:08] LABS: Vitamin D 25 Hydroxy 65 ng/mL (30-100)
== END 2023-10-23 07:01 | disposition home or self-care (01) ==
LOC: CHSLAB 07:03
PROVIDERS: PCP Family Medicine; Visit Provider Nurse Practitioner Family
DX: E55.9 Vitamin D deficiency, unspecified (principal); Z13.0 Encounter for screening for diseases of the blood and blood-forming organs and certain disorders involving the immune mechanism; Z13.220 Encounter for screening for lipoid disorders; Z13.228 Encounter for screening for other metabolic disorders; Z13.6 Encounter for screening for cardiovascular disorders
CPT/HCPCS: 36415; 80053; 80061; 82306; 85025

== ENCOUNTER 2024-05-01 00:19 | Day surgery (SDC) | payer MEDICARE, SELFPAY ==
[2024-04-15 12:38] VITALS: BMI 26.4
--- OUTSIDE RECORDS SUMMARY | 2024-05-01 00:23 | XMS_ITS | Clinical Summary ---
Author Organization [facility] Address [facility]ly [facility] [place] [address] Care Team Providers Care Social Worker Clinical Name Role Phone Tai Hubbard MD Primary Care Provider [phone] Social History Tobacco Use Types Packs/Day Years Used Date Smoking Tobacco: Never Assessed Comments Unknown Sex and Gender Information Value Date Recorded Sex Assigned at Not on file Legal Sex Female 2:22 PM CDT Gender Identity Not on file Sexual Orientation Not on file Plan of Treatment Health Maintenance Due Date Last Done Comments Colorectal Cancer Screening Colonoscopy (10 Years) 1955 Hepatitis C 05/21/1973 DTaP, Tdap and Td Vaccines (1 - Tdap) 05/21/1974 Mammogram Screening 1995 Annual Medicare Wellness Visit 05/21/2020 Dexa Scan (General) 05/21/2020 Pneumococcal Vaccine: 65+ Years (1 of 1 - PCV) 05/21/2020 COVID-19 Vaccine ( season) 2023 01/20/2023, 12/17/2021, 03/15/2021, Additional history exists Influenza Adult (#1) 2023 RSV Immunization or 60+ Years (1 - 1-dose 75+ series) 05/21/2030 Zoster Vaccines Completed 01/13/2020, 10/14/2019 Meningococcal B Vaccine Aged Out No l onger eligible based on patient's age to complete this topic Meningococcal Vaccine Aged Out No uri macario eligible based on patient's age to complete this topic RSV Immunizations Under 20 Months Aged Out No longer eligible based on patient's age to complete this topic Insurance [facility] Care Teams Social Worker Clinical Relationship Specialty Start Date End Date Tai Hubbard MD [address] [place] [address] PCP - General FAMILY PRACTICE 01/11/23
--- OUTSIDE RECORDS SUMMARY | 2024-05-01 00:23 | XMS_ITS | Clinical Summary ---
Author Organization [facility] Address [address] [place] [address] Care Team Providers Care Granite Polisher Machine Name Role Phone Unavailable Primary Care Provider Unavailabl e Source Comments [facility] [employer],non-owned Affiliates and Associated Physician Practices is amultiple site organization consisting of ambulatory clinics and hospital sitesin [place], [place], [place] and [place]. This disclosure is being madepursuant to the Care Everywhere program and may not contain all information available regarding this patient. Last updated 17.[facility] [employer] Allergies Active Allergy Reactions Criticality Noted Date Comments Penicillins Rash Medium 09/03/2019 Medications Be aware that medications may not be up to date on this document. Always verify current medications with the patient. No known medications Active Problems No known active problems Social History Tobacco Use Types Packs/Day Years Used Date Smoking Tobacco: Never Assessed Sex and Gender Information Value Date Recorded Sex Assigned at Not on file Gender Identity Not on file Sexual Orientation Not on file Last Filed Vital Signs Vital Sign Reading Time Taken Comments Blood Pressure 138/78 09/03/2019 10:55 AM CDT Pulse 70 09/03/2019 10:55 AM CDT Temperature 36.7 C (98 F) 09/03/2019 10:55 AM CDT Respiratory Rate 20 09/03/2019 10:55 AM CDT Oxygen Saturation - - Inhaled Oxygen Concentration - - Weight - - Height - - Body Mass Index - - Plan of Treatment Health Maintenance Due Date Last Done Comments BONE DENSITY TESTING 1955 COLOGUARD (AGES 45-75) - COL ON CA SCREENING 1955 COLON MONITORING 1955 COLONOSCOPY - COLON CA SCREENING 1955 CT COLONOGRAPHY - COLON CA SCREENING 1955 Colorectal Cancer Screening 1955 FIT - COLON CA SCREENING 1955 FLEX SIG - COLON CA SCREENING 1955 LIPID TESTING 1955 MAMMOGRAM 1955 HEPATITIS C SCREENING 05/17/1973 DTAP/TDAP/TD VACCINES (1 - Tdap) 05/21/1974 PNEUMOCOCCAL VACCINE 50+ (1 of 1 - PCV) 05/21/2005 ZOSTER VACCINE (1 of 2) 05/21/2005 COVID-19 VACCINE (1 - 2023-2 5 season) 2023 INFLUENZA VACCINE (#1) 2023 DEPRESSION SCREENING 03/12/2024 Respiratory Syncytial Virus (RSV) Vaccine Pt: or over 60 yrs (1 - 1-dose 75+ series) 05/21/2030 HEPATITIS B VACCINE Aged Out No longe r eligible based on patient's age to complete this topic HIB VACCINE Aged Out No longer eligi ble based on patient's age to complete this topic HPV VACCINE Aged Out No longer eligi ble based on patient's age to complete this topic MENINGOCOCCAL (Group B) VACCINE Aged Out No longer eligible based on patient's age to complete this topic MENINGOCOCCAL VACCINE Aged Out No uri macario eligible based on patient's age to complete [place] [address]
--- OUTSIDE RECORDS SUMMARY | 2024-05-01 00:23 | XMS_ITS | Referral Summary ---
Author Organization [facility] [employer] [facility] [employer] Address [address] [place] [address] Care Team Providers Care Toolroom Keeper Name Role Phone Unavailable Primary Care Provider Unavailabl e Source Comments [facility] [employer] [facility],non-owned Affiliates and Associated Physician Practices is amultiple site organization consisting of ambulatory clinics and hospital sitesin [place], [place], [place] and [place]. This disclosure is being madepursuant to the Care Everywhere program and may not contain all information available regarding this patient. Last updated 17.[facility] [employer] Allergies Active Allergy Reactions Criticality Noted Date [...] Mass Index - - Plan of Treatment Not on file
--- OUTSIDE RECORDS SUMMARY | 2024-05-01 00:23 | XMS_ITS | Patient Health Summary ---
Author Organization [facility] Address [address] [place] [address] Care Team Providers Care Compliance Examiner Name Role Phone Unavailable Primary Care Provider Unavailabl e Note from [facility],non-owned Affiliates and Associated Physician Practices is amultiple site organization consisting of ambulatory clinics and hospital sitesin [place], [place], [place] and [place]. This disclosure is being madepursuant to the Care Everywhere program and may not contain all information available regarding this patient. Last updated 17.[facility] Allergies * Penicillins(Rash) -Medium Criticality Medications Be aware that medications may not [...]
--- OUTSIDE RECORDS SUMMARY | 2024-05-01 00:23 | XMS_ITS | Clinical Summary ---
Author Organization [facility] Care Team Providers Care Education Program Coordinator Name Role Phone Unavailable Primary Care Provider Unavailabl e Social History Tobacco Use Types Packs/Day Years Used Date Smoking Tobacco: Never Assessed Comments Unknown Sex and Gender Information Value Date Recorded Sex Assigned at Not on file Legal Sex Female 9:02 PM CDT Gender Identity Not on file Sexual Orientation Not on file Plan of Treatment Not on file
--- OUTSIDE RECORDS SUMMARY | 2024-05-01 00:23 | XMS_ITS | Data Portability ---
Author Organization [place] [employer], Main Office Address [address] [place] [address] Care Team Providers Care Tourist Camp Attendant Name Role Phone BERNADETTE HUBBARD Primary Care Provider BERNADETTE HUBBARD Referring Provider [phone] Assessment Encounter Date Assessment Date Assessment LastModified by Organization Details LastModified Time 11/03/2022 11/03/2022 Impression:1. Patient has advanced osteoarthritis of left hip with progressive bone loss over the last 9 months. I have discussed treatment options with her. She has been living with this and as for all intents and purposes maximized non operative treatment which is not giving her satisfactory relief. I have discussed with her the option of total hip replacement and she would like to have that done. I have discussed direct anterior approach total hip replacement with her. I explained there may numbness around the incision. Risk of infection was discussed. She states that her teeth are fine and she has regular dental checkups. I recommended that she take antibiotics before dental work in the future. We discussed the risk of blood clots. She has no history of DVT personally or in her family members. I explained my preference for using Eliquis for 5 weeks after surgery for DVT prophylaxis. Risk of heterotopic ossification was discussed and I recommended Celebrex for 10 days after surgery to mitigate that risk. Risk of complications such as component loosening component wear or fracture of the component necessitating revision surgery discussed. Risk of bone fracture nerve injury bleeding transfusion leg length discrepancy dislocation were reviewed. Risk of medical complications such as heart attack stroke pulmonary embolism and were discussed. I have given her the Ortho info handout on total hip arthroplasty for review as well as the direct anterior approach booklet. Patient would like to have her surgery and mid November. She has a trip planned for the week of November #1status post laparoscopic cholecystectomy. No issues. #2 possible UTI, followup with primary care physician. Follow up here pwilli. She states she is going through a great deal right now both going through a divorce and she is selling her house also. 2. Patient has moderate weakness in abduction of the left hip. 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 We will obtain MRI scan and I will see her back after the test. Will check 25 hydroxy vitamin-D level as well supplement this event is low and triangular last bone density result for review. I would like her to see Dr. Hubbard for medical clearance before surgery. She states she is also trying to arrange having an MRI scan of her brain because of the seizures and that has been requested evaluate this further. Hopefully that can all be assessed before surgery. 60 minutes were spent total care this patient more than half the time spent in vdzp-uw-neof care. Not available 11/05/2022 22:27:30 11/09/2022 11/09/2022 Patient returns after MRI scan of her left hip. It does show severe atrophy and fatty infiltration of the left gluteus minimus with essentially absence of any muscle tissue of that muscle remaining. There is elongation of the tendon of the gluteus minimus consistent with degenerative tearing chronic. The gluteus medius shows just mild fatty infiltration very mild atrophy. This may be consistent with disuse. There is no evidence of proximal retraction of the musculotendinous junction of the medius. On the right side she has mild to moderate fatty infiltration and mild to moderate atrophy of the gluteus minimus muscle and elongation of the manage his tendon is mild. 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 She does not have a repairable abductor tendon tear that would benefit from a direct lateral approach with repair at time of hip replacement surgery. The fatty replacement is irreversible and trying to repair the minimus tendon would not add strength. Her cup AP diameter measures about 50 mm which would correlate to a 32 mm head on the [place] cup system. With her abductor deficiency she is at some increased risk for dislocation due to diminished soft tissue tension from the decreased pull of the abductors and a dual mobility cup liner construct would be better for her I believe. We will plan on that and ask for the Biomet dual mobility cup to use with the Actis stem. I have reviewed the risks of surgery with her detail. I have discussed with her that there will be numbness around the incision with a direct anterior approach. Risk of infection was discussed. Risk of blood clots were reviewed and I discussed my preference for using Eliquis for 5 weeks after surgery. I explained the risk of heterotopic ossification and my preference for using Celebrex for 10 days after surgery to minimize that risk. She will stop her meloxicam 7 days before the surgery. Risk of dislocation fracture loosening leg length discrepancy need for revision surgery nerve injury bleeding transfusion and medical complications such as heart attack stroke pulmonary embolism and were reviewed. She understands and wishes to proceed. 30 minutes were spent in total care this patient more than half the time spent in knjo-hy-bsad care. Not available 11/13/2022 13:15:15 01/10/2023 01/10/2023 HPI: Patient returns. She is 2 weeks out from left anterior total hip arthroplasty. Doing well. Pain overall is minimal. She is on the Eliquis. She has finished up her antibiotics as well as her Celebrex. She is on a walker. We want her to use the walker for 1st month, her bones will soft at the time surgery she did need some grafting of cysts. Physical exam: Patient's incision is well healed. Mild swelling to the proximal thigh. She has mild swelling in left lower extremity. None on the right. She states that swelling goes down in the morning but will come and go throughout the day depending on how much she is out. Impression: Patient doing well 2 weeks out left anterior total hip arthroplasty. Recommended that she keep leg elevated more the next 48 hours to get the last little bit of swelling out. She will continue with the walker. We will see her back in 2 weeks with x-rays of the left hip bethany Not available 01/10/2023 10:39:52 01/24/2023 01/24/2023 Patient returns now 4 weeks after left total hip arthroplasty. She has been using the walker per our instructions as she had substantial cystic changes in the superior lateral acetabulum. She is very comfortable and she has tried out full weight-bearing without the walker and is comfortable. She is having no pain in left hip is very happy with her progress. She is off all pain meds. She has 1 more week of Eliquis remaining. Her incision looks well healed. She has minimal trace residual edema in the left ankle which is much better than it was 2 weeks ago. Patient's chief complaint today is pain in the right hip now. Patient would like to pick a date for her right total hip arthroplasty sometime after March 29 which would be 3 months after her left hip replacement. X-rays today show severe type 1 osteoarthritis of the right hip. This time we will have her start using a cane the right hand for the next 2 weeks and then wean off the cane as her comfort allows. If she would like if the right hip is bothering her much that point she can use the cane left hand. I will see her back in 1 month to assess her progress. No x-rays at that time. Not available 01/28/2023 16:43:19 02/21/2023 02/21/2023 Impression: 1. Patient is doing well 8 weeks following left total hip arthroplasty. She does have still some dependent edema in the left lower extremity has been using support does on some days which helps. The we will obtain a venous duplex ultrasound make sure she is not of a DVT. If not I would expect that the pendant edema gradually improve with time. 2. Patient has severe osteoarthritis of the right hip and she would like to schedule right total hip arthroplasty and has picked April 30, 2022 as a surgical date. She is familiar with the risks of surgery which we reviewed today and I have answered all of her questions. She will stop the meloxicam she is taking again 1 week before surgery we will proceed as discussed. Addendum: Venous duplex ultrasound left lower extremity was negative for DVT. 20 minutes were spent total care this patient with respect to her right hip with more than half the time spent in mjul-ty-xqiv care. Not available 02/22/2023 16:27:50 Plan of Treatment Reminders Order Date Submit Date Provider Last Modified By Organization Details Last Modified Time Details Appointments None recorded. Lab None recorded. Referral None recorded. Procedures None recorded. Surgeries None recorded. Imaging XR, hip + pelvis, bilateral, 3 or 4 view 2022 023 [facility], [address], [place], [address], 3 10:09:18 XR, hip + pelvis, unilateral 2022 023 [facility] [place], [address], [place], [address], 3 11:16:35 MRI, hip, w/o contrast - INCLUDE T2 CORONAL L-HIP AND PELVIS 2022 023 Not available 11:16:36 Medication Orders meloxicam 15 mg tablet 2022 023 [facility] [address], [id number], 3 09:23:44 Patient TargetsNo targets recorded. Patient InstructionsNo instructions recorded. Reason for Referral None Reported. Results Created Date Observation Date Name Description Value Unit Range Abnormal Flag Note LastModifiedBy Organization Detail LastModifiedTime 11/04/19 XR, hip + pelvi s, unila teral No observ ation record ed. [facility] [address], [place], [address], 11/05/2022 22:20:26 11/04/19 23 02/08/2022 XR, hip, unila teral No observ ation record ed. Not Available 2022 16:27:18 11/08/19 23 MR hip w/o contr ast, left [facility] [address], [place] [address] Patien t Name: PRASHANT FLOYD Access ion #: [id number] Sex: F : 1955 4 7 Dictat ed By: Thee armas Attend ing Physic hussein: EDSON HILLS Orderi Physic hussein: EDSON HILLS Exam Date: 2022 09:38 AM Exam Name: MRI HIP LT WO Admitt ing Diagno sis(es ): CLINIC AL INFORM ATION: Pain. TECHNI SHAKIRA INFORM ATION: Multis equenc e multip lanar MRI images of the left hip were obtain ed withou t contra st. COMPAR ELA: Radiog raphs dated 2021. INTERP RETATI ON: BONES: No acute fractu re or osteon ecrosi s. Hetero geneou s marrow signal throug hout the pelvis , likely due to red marrow hyperp lasia with inters persed areas of focal fatty marrow . JOINT: Severe osteoa rthrit ic change s are seen in both hips with severe joint space narrow ing, subcho ndral sclero sis, and promin ent subcho ndral cystic change in the femora l heads and acetab stormy bilate rally. Promin ent margin al osteop hytes. There is global labral degene ration with likely degene rative tears. There is a small to modera te effusi on in the left hip with mild synovi tis. BURSAE : Mild bilate ral peritr ochant samia edema and trace fluid. TENDON S: Mild to modera te tendin osis of the distal gluteu s medius and minimu s tendon s. Origin s of the rectus femori s tendon and hamstr ing tendon s are intact . Distal insert ion of the iliops oas tendon is intact . MUSCLE S: Modera te to marked fatty atroph y of the left gluteu s minimu s muscle and mild fatty atroph y of the right gluteu s minimu s muscle . OTHER: Incide ntal note is made of a 2.2 cm intram ural fibroi d in the uterin e fundus . Sigmoi d divert iculos is also partia lly visual ized. CONCLU JOHN: Severe osteoa rthrit ic change s in both hips as descri bed above. Page 1 [facility] [address], [place] [address] Patien t Name: PRASHANT FLOYD ion #: [id number] Sex: F : 1955 4 7 Dictat ed By: Thee armas Attend ing Physic hussein: RAMONA PEÑA Orderi Physic hussein: EDSON HILLS Exam Date: 2022 09:38 AM Exam Name: MRI HIP LT WO Admitt ing Diagno sis(es ): Small to modera te left hip joint effusi on with mild synovi tis. Additi onal findin gs as detail ed above. Electr onical ly Signed by: Thee armas at 2022 12:57: 17 PM Page [address] ([facility]) [address] [place], [address], 11/08/2022 16:35:29 12/21/19 23 12/06/2022 elect goyo lozano am No observ ation record ed. Not Available 2022 14:06:49 12/21/19 23 05/05/2022 bone densi ty No observ ation record ed. Not Available 2022 10:35:20 12/28/19 23 12/27/2022 XR, hip + pelvi s, unila teral No observ ation record ed. [place] [address] [facility] [address] [place] [address], [address], 12/28/2022 10:56:32 12/28/19 23 12/27/2022 XR, hip + pelvi s, unila teral No observ ation record ed. [place] [address] [facility] [address], [place], [address], 12/28/2022 10:56:46 01/25/20 23 XR, hip + pelvi s, bilat eral, 3 or 4 view No observ ation record ed. [facility] [address], [place], [address], 01/28/2023 16:39:21 02/22/20 23 02/21/2023 US, dorinda x, checoou s, lower extre mity No observ ation record ed. [email or web address] [facility] [address] [facility] [address], [place], [address], 02/21/2023 16:19:05 Result Notes None recorded. Problems Name Problem SNOMED Code Status Onset Date Resolution Date Notes Provider Name and Address Organization Details Recorded Time Pain of left hip joint 0188056302382 00 Active 2022 ISABELA Olson, [place] [facility] [place] [facility] 3 11:31:47 Osteoarthri tis of left hip joint 2346665138731 08 Active 2022 ISABELA Olson, [place] [facility] 3 15:59:35 Osteoarthri tis of right hip joint 5174535473262 07 Active 2022 ISABELA Olson, [place] [facility] 3 10:01:06 History of total replacement of left hip joint 9107757202910 105 Active 2022 ISABELA Olson, [place] [facility] 3 10:01:31 Edema of lower extremity 480197011 Active 2022 ISBAELA Olson, [place] [facility] 3 10:54:37 Pain in right hip joint 7724296708801 02 Active 2023 ELIS Garcia null, [place] - [facility] 4 13:11:56 Problem Notes None recorded. Procedures Surgical History Date Name Laterality Status Provider Name and Address Organization Details Recorded Time 8 Foot Surgery completed Paula Gresham CMA [place] [facility] [place] [facility] 11/03/2022 11:30:44 Imaging Results Imaging Date Name Status LastModified by Organization Details LastModified Time 11/03/2022 XR, hip + pelvis, unilateral completed [facility] [address], [place], [address], 11/05/2022 22:20:26 02/08/2022 XR, hip, unilateral completed Infor mation not available 11/03/2022 16:27:18 11/07/2022 MR hip w/o contrast, left completed [email or web address] [facility] ([facility]) [address] [place], [address], 11/08/2022 16:35:29 12/06/2022 electrocardiogram completed Informa tion not available 12/20/2022 14:06:49 05/05/2022 bone density completed Information not available 12/20/2022 10:35:20 12/27/2022 XR, hip + pelvis, unilateral completed [address], [place], [address], 12/28/2022 10:56:32 12/27/2022 XR, hip + pelvis, unilateral completed [email or web address] [place] [address] [facility] [address], [address], 12/28/2022 10:56:46 01/24/2023 XR, hip + pelvis, bilateral, 3 or 4 view completed [facility] [address] [facility] [address], [place], [address], 01/28/2023 16:39:21 02/21/2023 US, duplex, venous, lower extremity completed [email or web address] [place] [address] [facility] [address], [address], 02/21/2023 16:19:05 Procedure Notes None recorded. Medical Equipment None Reported. Allergies Allergen ID Allergen Name Allergen Category Reaction Reaction Severity Criticality Documentation Date Start Date Code Code System Note Provider Name and Address Organization Details Recorded Time 58577 Product containin g penicilli n (product) medicatio n rash Not available Not available 11/03/2022 30382 8001 SNOMED Paula Marga, CELLOPHANE BAG MACHINE OPERATOR null, [place] [employer] [facility] [employer] 11:26:49 Medications Name Sig Start Date Stop Date Status Note LastModified by Organization Details LastModified Time celecoxib 200 mg capsule 01/10 completed Not Available Not Available Not Available meloxicam 15 mg tablet TAKE ONE TABLET BY MOUTH DAILY active Not Available Not Available No t Available tramadol 50 mg tablet Take 1 tablet every 6-8 hours by oral route as needed. 2023 active Not Available Not Available Not Avai lable carbamazepine ER 200 mg tablet,extend ed release,12 hr active Not Available Not Available Not Available hydroxyzine HCl 25 mg tablet active Not Available Not Available Not Available cefdinir 300 mg capsule 01/10 completed Not Available Not Available Not Available oxycodone 5 mg tablet Take 1 tablet every 4 hours by oral route. 01/24 completed Not Available Not Available Not Available rosuvastatin 10 mg tablet active Not Available Not Available Not Available meloxicam 01/10 completed Not Available Not Available Not Available carbamazepine 01/10 completed Not Available Not Available Not Available hydroxyzine HCl 02/21 completed Not Available Not Available Not Available rosuvastatin 01/10 completed Not Available Not Available Not Available Eliquis 2.5 mg tablet 02/21 completed Not Available Not Available Not Available Vitals Date Recorded Body height Body mass index (BMI) Body weight Provider Name and Address Organization Details Last Updated DateTime 11/03/2022 175.26 cm 27.6 kg/m2 40971.77 g Mariposa Molina CNA [employer] [employer] [facility] [employer] 11/03/2022 11:35:07 Date Recorded Body height Provider Name an d Address Organization Details Last Updated DateTime 11/09/2022 175.26 cm Ashlee Kebede [facility] [employer] [facility] [employer] 11/09/2022 10:28:25 Date Recorded Body height Provider Name an d Address Organization Details Last Updated DateTime 01/10/2023 175.26 cm Ashlee Kebede [place] [employer] [employer] [facility] [employer] 01/10/2023 09:23:08 Date Recorded Body height Provider Name an d Address Organization Details Last Updated DateTime 01/24/2023 175.26 cm ELIS Garcia [facility] [employer] [facility] 01/24/2023 09:07:15 Date Recorded Body height Provider Name an d Address Organization Details Last Updated DateTime 02/21/2023 175.26 cm ELIS Garcia [facility] [employer] [facility] 02/21/2023 09:42:47 Social History Question Answer Notes LastModified by Organizat ion Details LastModified Time Tobacco Smoking Status Never Smoker 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 Occasional Information not available 11/03/2022 Do You Or Have You Ever Used Any Other Forms Of Tobacco Or Nicotine? No Information not available 11/03/2022 Sex: Unknown Functional Status None recorded. Mental Status None recorded. Family History Relationship Description Onset Age of this Age Resolved Age Notes LastModified by Organization Details LastModified Time Father Heart disease Not available 2022 11:29:39 Medical History Condition Response BLINDNESS N KIDNEY STONES N CARPAL TUNNEL SYNDROME N MRSA N LUNG DISEASE/DISORDER N HISTORY OF DRUG ABUSE N RADIATION / CHEMOTHERAPY N COPD N SPORTS INJURY N ANKLE PAIN N BLOOD DISEASES N PAST SPINAL SURGERY N SCHIZOPHRENIA N SHINGLES N SHOULDER PAIN N BOWEL PROBLEMS N DEPRESSION (INCLUDING POST ) N FAILED BACK SYNDROME N STROKE/TIA N ULCERS N OTHER MODALITIES N KNEE PAIN N BENIGN PROSTATIC HYPERPLASIA N OBESITY N GERD/NAUSEA N ANEURYSM N URINARY/BLADDER/KIDNEY PROBLEMS N CORONARY ARTERY DISEASE (CAD) N Do you have Advance directive? N ADDICTION CONCERNS N USE OF BLOOD THINNERS N SKIN PROBLEMS N EMPHYSEMA N MUSCLE,JOINT OR BONE PROBLEMS N DVT N STOMACH ULCERS N BLOOD CLOTS N PAST HISTORY OF VEHICULAR ACCIDENT N USE OF NSAIDS N CONCUSSION OR SPINAL TRAUMA N ARTERIAL INSUFFICIENCY N NEUROPATHY N AIDS/HIV N FRACTURES N HYPERTENSION N ELBOW PAIN N TOURETTE'S N Metal allergy N ANXIETY DISORDER N BLOOD TRANSFUSION N ANEMIA/BLOOD DISORDER N BIPOLAR DISORDER N BRONCHITIS N OSTEOARTHRITIS N TUBERCULOSIS N FOOT PROBLEM N HEART VALVE DISORDERS N SLEEP APNEA N SOFT TISSUE INJURY N ALLERGIES/HAYFEVER N BACK INJECTIONS N INFECTIOUS DISEASE N HEART ARRHYTHMIA N ESRD N INSOMNIA N PAST INTERVENTIONAL PAIN MANAGEMENT HIST ORY N RHEUMATOID ARTHRITIS N HIGH CHOLESTEROL / HYPERLIPIDEMIA N PAST MEDICATION HISTORY N PVD N EDEMA N CHRONIC PAIN SYNDROME N CAROTID BLOCKAGE N BACK / NECK PROBLEMS N HAVE YOU BEEN HOSPITALIZED OR SEEN IN [facility] ER IN THE PAST YEAR ? N BURSITIS N HERNIATED DISC N DIALYSIS N POLYCYSTIC OVARIES N FIBROMYALGIA N OSTEOPOROSIS N ARTHRITIS N RESPIRATORY PROBLEMS N NO SIGNIFICANT PAST MEDICAL HISTORY N PAST HISTORY OF FALL N PERIPHERAL NEUROPATHY N DIABETES, TYPE N VON WILLIBRAND'S DISEASE N HEARTBURN / REFLUX N HEPATITIS / LIVER DISEASE N POST LAMINECTOMY SYNDROME N GOUT N SLEEP DISORDER N ALZHEIMER'S DISEASE N HERPES N SEIZURES/EPILEPSY Y HEADACHES/MIGRAINES N VASCULAR DISEASE N Blood Disorder N HIP PAIN N DIZZINESS N HEAD TRAUMA OR INJURY N HEART DISEASE/HEART PROBLEMS N MULTIPLE SCLEROSIS N NEUROPSYCHOLOGICAL N CANCER: SPECIFY N CARDIAC ARRHYTHMIA N ANESTHESIA COMPLICATIONS N ATRIAL FIBRILLATION Y AUTOIMMUNE DISEASE N Gynecological HistoryNo gynecological history recorded. Obstetrics History GPAL:G 0 P 0 0 0 0 Past Encounters Encounter ID Performer Location Encounter Start Date Encounter Closed Date Diagnosis/Indication Diagnosis SNOMED-CT Code Diagnosis ICD10 Code Diagnosis Note [id number] Edson Tong MD [facility] [place] [address] [place] [address] 11/03/2022 10:40:36 11/06/2022 11:16:35 Pain of left hip joint 0948476094 65409 M25.552 M16.12 [id number] Edson Tong MD [facility] [address] 11/09/2022 10:26:17 11/14/2022 10:38:26 Pain of left hip joint 2263232413 15806 M25.552 M16.12 [id number] LUDA Julien [facility] [place] [address] [facility] [address] [place] [address] 01/10/2023 09:17:21 01/10/2023 10:41:43 History of total replacement of left hip joint 2854977645 320305 Z96.813 [id number] Edson Tong MD [facility] [place] [address] [place] [address] 01/24/2023 09:05:29 01/30/2023 10:09:18 History of total replacement of left hip joint 2521879163 793879 Z96.642 M16.11 [id number] Edson Tong MD [facility] [place] [address] [facility] [address] [place] [address] 02/21/2023 09:34:09 02/26/2023 11:00:59 History of total replacement of left hip joint 9517106171 771992 Z96.642 M16.11 Health Concerns Section Related Observation LastModified by Organization Detai ls LastModified Time None Recorded Concern Status LastModified by Organization Details LastModified Time None Recorded Advance Directives Directive None Recorded Payers Encounter Date Sequence Insurance Name Policy Number Policy Hagan Covered Member ID Hagan Member ID Guarantor Name 11/03/2022 1 [facility] (MEDICARE REPLACEMENT/A DVANTAGE - HMO) [id number] Prashant Floyd [id number] Prashant Floyd 11/09/2022 1 [facility] (MEDICARE REPLACEMENT/A DVANTAGE - HMO) [id number] Prashant Floyd [id number] Prashant Floyd 01/10/2023 1 [facility] (MEDICARE REPLACEMENT/A DVANTAGE - HMO) [id number] Prashant Floyd [id number] Prashant Floyd 01/24/2023 1 [facility] [facility] (MEDICARE REPLACEMENT/A DVANTAGE - HMO) [id number] Prashant Floyd [id number] Prashant Floyd 02/21/2023 1 [facility] (MEDICARE REPLACEMENT/A DVANTAGE - HMO) [id number] Prashant Floyd [id number] Prashant Floyd Notes Date Note Type Note Provider Name and Address Organization Details Recorded Time 11/03/2022 text/html patient is a 67-year-old female referred by Dr. Hubbard for evaluation of her left hip arthritis. She has had symptoms for more than 2 years. she retired 2 years ago and remembers having difficulty with steps at work before then. She complains of pain in her groin front of the hip side of the hip lower back thigh and knee. She does not notice pain in the buttock itself. Walking climbing stairs driving in lying in bed all aggravate her symptoms. She has been limping she can not walk very far because the pain. She denied any numbness or tingling in the left lower extremity. She feels that her left leg has become shorter. She has been taking meloxicam 15 mg once daily for last 10 months. Initially she was started on 7.5 mg daily which helped for few months and then stopped helping and more recently has been increased to 15 mg per day. She also takes Tylenol on a daily basis. She has had physical therapy. She does not use a gait aid. She sees our chiropractor chronically on an as-needed basis for lower back pain. Sometimes she will get a lump in the left paraspinous muscles that sounds like a paraspinous muscle spasm and when she gets this she sees the chiropractor and manipulations tend to give her relief. Last bone density test was done in April at [facility]. We will request the result She does have a cane at home and she has used it from time to time just not consistently. She tried on the left side which felt very awkward and she figured out how to get on the right. Her past medical history is significant for many seizures and she takes carbamazepine for that. She also takes hydroxyzine and rosuvastatin. She does not smoke. X-rays left hip two views from 02/08/2022 from [place] are reviewed and demonstrate severe type 1 osteoarthritis left hip with cystic changes of superior acetabulum superior femoral head [id number] contact superiorly. Edson Tong MD [address], [address], [place], [address], [facility] [employer] [facility] 11/05/2022 22:27:45 02/21/2023 text/html patient returns. She is now 8 weeks out after her left total hip arthroplasty and is very happy with her results. She feels she is doing great. She would like to formally schedule right total hip arthroplasty as soon as possible. Her right hip as been less severely painful that it was a month ago since she was able to resume the meloxicam is a 15 mg daily which she had on hold while she was on the Eliquis and some days her symptoms are mild but other days her symptoms are very severe. She does not want to keep living with the pain in her right hip and wants to proceed with right hip replacement. previous x-rays demonstrate severe osteoarthritis of the right hip and pronounced hypertrophic osteophytes explaining her marked limitation in range of motion today. Edson Tong MD [address], [address], [place], [address], [place] [facility] 02/22/2023 16:28:03 OBGyn Episode No OBEpisode recorded.
[2024-05-01 06:25] VITALS: BP 127/60; PULSE 80; RESP 16; TEMP 36.4; O2SAT 100
[2024-05-01] MEDS: LACTATED RINGERS 1,000 ML 150 ML IV CONT (06:35)
--- NOTE | 2024-05-01 06:44 | P.PNAN_ITS ---
Anes - Initial Pre Proc Eval Procedure: Operation Date: 05/01/24 07:30 Proposed Procedures p Screening Colonoscopy - Raymundo Bennett MD Date/Time: 05/01/24 06:44 Surgeon: Raymundo Bennett MD Pre Op Diagnosis: screening for malignant neoplasm of colon. Patient Data Age: 68 Gender: F Height: 1.75 m Weight: 80.3 kg Last Vital Signs Temp 97.5 F L 05/01/24 06:25 Pulse 80 05/01/24 06:25 Resp 16 05/01/24 06:25 BP 127/60 05/01/24 06:25 Pulse Ox 100 05/01/24 06:25 O2 Del Method Room Air 05/01/24 06:25 Allergies Allergy/AdvReac Type Severity Reaction Status Date / Time Penicillins Allergy Severe Hives, RASH Verified 05/01/24 06:23 Home Medications ?Medication ?Instructions ?Recorded ?Confirmed ?Type carbamazepine 200 mg 200 mg PO Q12H #180 tabs 08/22/23 05/01/24 Rx tablet,extended release,12 hr (Tegretol XR) hydroxyzine HCl 25 mg tablet See Rx Instructions .Route 03/28/24 05/01/24 Rx .COMPLEX #60 tabs rosuvastatin 10 mg tablet See Rx Instructions .Route 04/14/24 05/01/24 Rx .COMPLEX #90 tabs ergocalciferol (vitamin D2) 1,250 See Rx Instructions .Route 04/28/24 05/01/24 Rx mcg (50,000 unit) capsule .COMPLEX #9 caps Patient hx anesthesia problems: none Family hx anesthesia problems: none Results Review: All pre-operative results and documents have been reviewed as part of the pre- operative evaluation. [facility] Past Medical History Medical History Osteoarthritis of right hip Colon cancer screening Hip arthritis Headache BPPV (benign paroxysmal positional vertigo) Contact dermatitis Osteoarthritis of left hip Seizure disorder Vitamin D deficiency Yeast detected History of 1 spontaneous Dyshidrotic eczema Encounter for preventative adult health care examination Medication monitoring encounter Hyperlipemia Localization-related (focal) (partial) symptomatic epilepsy and epileptic syndromes with complex partial seizures, intractable, without status epilepticus Surgical History Surgical History History of right hip replacement 06/19/23- Dr Tong History of total hip arthroplasty S/P hip replacement Left MILAD- Alycia History of foot surgery History of section Family History Family History Mother Patient's mother is in good health Father Patient's father is in good health Sibling Family history of diabetes mellitus in first degree relative Diabetes mellitus Social History Social History Smoking status: Never smoker Second hand tobacco smoke exposure: No Alcohol intake: never Substance use: never Substance use type: does not use Do You Feel Safe in your Home?: No Lack of Transportation: No Lack of Food: Never True Current Housing: I Have Housing Concerned About Future Housing: No Difficulty Paying Gas/Electric Bills: No Difficulty Paying for Meds: No Currently Unemployed: No Education: Bachelor's Degree Difficulty w/ Childcare or Family Care: No Living arrangements: with family Additional living arrangements comments: DAUGHTER Occupation/Education: retired Gender identity (if verbalized by the patient): Female Spiritual care concerns: No Anes - Eval Final PreProcedure Day of Procedure 05/01/24 06:44 Patient weight: overweight Lungs: normal air movement Airway: Mallampati scale Neurological: alert and oriented Last oral intake: >/= 8 hours ASA classification: II Emergent: no Anesthetic plan: proceed Anesthesia type and monitoring: general GIVS and standard monitoring Results Review: All pre-operative results and documents have been reviewed as part of the pre-operative evaluation. Hyperlipidemia, hx of seizure disorder, none since 2013. Informed Consent: The patient's anesthetic plan and its attendant risks and benefits were discussed with the patient/family/POA. Questions were solicited and answers provided to the satisfaction of the patient/family/POA.
--- NOTE | 2024-05-01 07:31 | PM.IMHP ---
H&P: HPI History of Present Illness Date/Time: 05/01/24 07:31 Chief Complaint: Screening colonoscopy Narrative: This is the patient's first colonoscopy. There are no GI symptoms and there is no family history of colorectal cancer. Review of Systems Review of Systems: All systems reviewed & are unremarkable except as noted in HPI and below PMFSH Past Medical History Medical History (Updated 05/01/24 @ 07:32 by Raymundo Bennett MD) Colon cancer screening Osteoarthritis of right hip Hip arthritis Headache BPPV (benign paroxysmal positional vertigo) Contact dermatitis Osteoarthritis of left hip Seizure disorder Vitamin D deficiency Yeast detected History of 1 spontaneous Dyshidrotic eczema Encounter for preventative adult health care examination Medication monitoring encounter Hyperlipemia Localization-related (focal) (partial) symptomatic epilepsy and epileptic syndromes with complex partial seizures, intractable, without status epilepticus Surgical History Surgical History History of right hip replacement 06/19/23- Dr Tong History of total hip arthroplasty S/P hip replacement Left MILAD- Alycia History of foot surgery History of section Family History Family History Mother Patient's mother is in good health Father Patient's father is in good health Sibling Family history of diabetes mellitus in first degree relative Diabetes mellitus Social History Social History Smoking status: Never smoker Second hand tobacco smoke exposure: No Alcohol intake: never Substance use: never Substance use type: does not use Do You Feel Safe in your Home?: No Lack of Transportation: No Lack of Food: Never True Current Housing: I Have Housing Concerned About Future Housing: No Difficulty Paying Gas/Electric Bills: No Difficulty Paying for Meds: No Currently Unemployed: No Education: Bachelor's Degree Difficulty w/ Childcare or Family Care: No Living arrangements: with family Additional living arrangements comments: DAUGHTER Occupation/Education: retired Gender identity (if verbalized by the patient): Female Spiritual care concerns: No Meds Home Medications and Allergies Home Medications ?Medication ?Instructions ?Recorded ?Confirmed ?Type carbamazepine 200 mg 200 mg PO Q12H #180 tabs 08/22/23 05/01/24 Rx tablet,extended release,12 hr (Tegretol XR) hydroxyzine HCl 25 mg tablet See Rx Instructions .Route 03/28/24 05/01/24 Rx .COMPLEX #60 tabs rosuvastatin 10 mg tablet See Rx Instructions .Route 04/14/24 05/01/24 Rx .COMPLEX #90 tabs ergocalciferol (vitamin D2) 1,250 See Rx Instructions .Route 04/28/24 05/01/24 Rx mcg (50,000 unit) capsule .COMPLEX #9 caps Allergies Allergy/AdvReac Type Severity Reaction Status Date / Time Penicillins Allergy Severe Hives, RASH Verified 05/01/24 06:23 Vital Signs Vital Signs - 24 hr 05/01/24 06:25 Temperature 97.5 F L Pulse Rate 80 Respiratory Rate 16 Blood Pressure 127/60 Pulse Oximetry 100 Oxygen Delivery Room Air Exam Const: General: cooperative and healthy appearing Resp: Effort & Inspection: normal respiratory effort and able to speak in complete sentences Auscultation: clear to auscultation bilaterally Cardio: Rate: regular rate Rhythm: regular rhythm GI: Inspection: normal to inspection GI Palp: No No hepatosplenomegaly present Auscultation: normal bowel sounds Rectal Exam: deferred Skin: General skin exam: normal color Psych: Appearance: grossly normal Mental Status: mental status grossly normal Assessment and Plan Assessment and plan (1) Colon cancer screening: Code(s): Z12.11 - Encounter for screening for malignant neoplasm of colon Status: Acute Assessment and Plan: The patient is deemed a good candidate for the procedure. Consent signed. Will proceed.
[2024-05-01 07:55] VITALS: BP 107/61; PULSE 68; RESP 18; O2SAT 100
[2024-05-01 08:05] VITALS: BP 114/65; PULSE 70; RESP 16; O2SAT 100
[2024-05-01 08:15] VITALS: BP 126/74; PULSE 70; RESP 17; O2SAT 100
== END 2024-05-01 08:31 | disposition home or self-care (01) ==
PROVIDERS: PCP Family Medicine; Referring Provider Obstetrics & Gynecology; Visit Provider Internal Medicine Gastroenterology
PROC: 0DJD8ZZ Inspection of Lower Intestinal Tract, Via Natural or Artificial Opening Endoscopic (ICD-10-PCS; CPT 45378; principal; 2024-05-01 07:30)
DX: Z12.11 Encounter for screening for malignant neoplasm of colon (principal); K57.30 Diverticulosis of large intestine without perforation or abscess without bleeding
CPT/HCPCS: G0121; J2704; J7120

== ENCOUNTER 2024-05-08 12:45 | Outpatient (CLI) | payer MEDICARE, SELFPAY | END 2024-05-08 12:46 | disposition home or self-care (01) | PROVIDERS: PCP Family Medicine; Visit Provider Obstetrics & Gynecology | DX: Z78.0 Asymptomatic menopausal state (principal) | CPT/HCPCS: 77080 ==

== ENCOUNTER 2024-07-07 10:38 | Outpatient (CLI) | payer MEDICARE, SELFPAY ==
--- NOTE | ~2024-07-07 | MR_ITS ---
EXAMINATION: MR knee LT wo con DATE: 07/07/2024 11:09 INDICATION: Unilateral primary osteoarthritis, left knee TECHNIQUE: Magnetic resonance imaging (MRI) of the left knee was performed without intravenous contra st. Sequences included axial PD-weighted FS FSE, coronal PD-weighted FSE and PD-weighted FS FSE, sagi ttal PD-weighted FSE, and sagittal T2-weighted FS FSE. COMPARISON: None. FINDINGS: Medial compartment: Moderate medial joint space narrowing. Large areas of full-thickness cartilage loss. Moderate osteoph ytosis. Meniscal root ligament tear. Degenerative signal change and fraying in the medial meniscus, w ith meniscal extrusion. Lateral compartment: Moderate cartilage thinning. Moderate osteophytosis. Fraying of the free edge of the lateral meniscus . Meniscus otherwise intact. Patellofemoral compartment: Full-thickness cartilage loss over the lateral facet and lateral femoral groove. Extensor mechanism i s intact. Retinacula intact. Ligaments and tendons: Thickening of the proximal MCL. The ACL, PCL, and LCL are intact. Thickening of the IT band, possible mild chronic change. Mild thickening and immediate signal in the insertion of the semimembranosus te ndon as can be seen with mild strain. Fluid: Large volume joint fluid. Large Hernandez's cyst. Osseous/other: No suspicious focal or diffuse marrow signal. IMPRESSION: Meniscal root ligament tear of the medial meniscus. Tricompartmental osteoarthritic changes, severe in the patellofemoral compartment and medial compartm ent. Chronic partial MCL tear, mild IT band changes, and mild semimembranosus strain. Large knee joint effusion. Large Hernandez's cyst. Reviewed, dictated and finalized at location K. IMPRESSION: Meniscal root ligament tear of the medial meniscus. Tricompartmental osteoarthritic changes, severe in the patellofemoral compartme nt and medial compartment. Chronic partial MCL tear, mild IT band changes, and mild semimembranosus strain . Large knee joint effusion. Large Hernandez's cyst.
== END 2024-07-07 10:39 | disposition home or self-care (01) ==
LOC: GOSHIMG 10:38
PROVIDERS: PCP Orthopaedic Surgery; Visit Provider Orthopaedic Surgery
DX: S83.242A Other tear of medial meniscus, current injury, left knee, initial encounter (principal); S76.312A Strain of muscle, fascia and tendon of the posterior muscle group at thigh level, left thigh, initial encounter; X58.XXXA Exposure to other specified factors, initial encounter; M23.632 Other spontaneous disruption of medial collateral ligament of left knee; M76.32 Iliotibial band syndrome, left leg; M25.462 Effusion, left knee; M71.22 Synovial cyst of popliteal space [Baker], left knee
CPT/HCPCS: 73721

== ENCOUNTER 2024-07-09 16:26 | Outpatient (CLI) | payer MEDICARE, SELFPAY ==
--- NOTE | ~2024-07-09 | US_ITS ---
EXAMINATION: US venous doppler [facility] DATE: 07/09/2024 17:41 INDICATION: Pain and swelling in the left lower extremity TECHNIQUE: Grayscale ultrasound images without and with compression and Doppler ultrasound images of the left lower extremity veins were obtained. COMPARISON: 02/21/2023 FINDINGS: The visualized portions of left common femoral vein, profunda (deep) femoral vein, femoral vein, popl iteal vein, peroneal veins, posterior tibial veins, and greater saphenous vein outflow are patent. Within the left popliteal fossa is a thick walled focus of simple fluid measuring 5.4 x 1.7 x 1.8 cm, consistent with a Hernandez's cyst. IMPRESSION: 1. No deep venous thrombosis. 2. Left-sided Hernandez's cyst measuring 5.4 cm in greatest dimension Reviewed, dictated and finalized at location A.
--- OUTSIDE RECORDS SUMMARY | 2024-07-09 16:42 | XMS_ITS | Clinical Summary ---
Author Organization [facility] Care Team Providers Care Commission For The Blind Director Name Role Phone Unavailable Primary Care Provider [...]
--- OUTSIDE RECORDS SUMMARY | 2024-07-09 16:42 | XMS_ITS | Clinical Summary ---
Author Organization [facility] Address [facility] [place] [address] Care Team Providers Care International Logistics Manager Name Role Phone Tai Hubbard MD Primary Care Provider [phone] Social History Tobacco Use Types Packs/Day Years [...] (1 - Tdap) 05/21/1974 Mammogram Screening 1995 Pneumococcal Vaccine: 50+ Years (1 of 1 - PCV) 05/21/2005 Annual Medicare Wellness Visit 05/21/2020 Dexa Scan (General) 05/21/2020 COVID-19 Vaccine ( season) 2023 01/20/2023, 12/17/2021, 03/15/2021, Additional history exists RSV Immunization or 60+ Years (1 - [...] patient's age to complete this topic Insurance [facility] Care Teams International Logistics Manager Relationship Specialty Start Date End Date Tai Hubbard MD [address] [place] [address] [facility] [place] [address] PCP - General FAMILY PRACTICE 01/11/23
--- OUTSIDE RECORDS SUMMARY | 2024-07-09 16:42 | XMS_ITS | Clinical Summary ---
Author Organization [facility] Address [address] [place] [address] Care Team Providers Care Statistical Programmer Analyst Name Role Phone Unavailable Primary Care Provider Unavailabl e Source Comments [facility],non-owned Affiliates and Associated Physician Practices is amultiple site organization consisting of ambulatory clinics and hospital sitesin [place], [place], [place] and [place]. This disclosure is being madepursuant to the Care Everywhere program and may not contain all information available regarding this patient. Last updated 17.[facility] Allergies Active Allergy Reactions Criticality Noted Date Comments Penicillins Rash Medium 09/03/2019 Medications * Be aware that medications may not be up to date on this document. Alwaysverify current medications with the patient. No known medications Active Problems No known active problems Social History Tobacco Use Types Packs/Day Years Used Date Smoking Tobacco: Never Assessed Comments Unknown Sex and Gender Information Value Date Recorded Sex Assigned at Not on file Legal Sex Female 7:09 AM CDT Gender Identity Not on file Sexual [...] VACCINE (1 - 2023-2 5 season) 2023 DEPRESSION SCREENING 03/12/2024 INFLUENZA VACCINE (Season Ended) 2024 Respiratory Syncytial Virus (RSV) Vaccine Pt: or [...] to complete this topic MENINGOCOCCAL (Group B) VACC INE SHARED DECISION-MAKING Aged Out No longer eligibl e based on patient's age to complete this topic MENINGOCOCCAL GROUPS A/C/Y/W VACCINE Aged Out No longer eligible b ased on patient's age [place] [address] [facility]
== END 2024-07-09 16:27 | disposition home or self-care (01) ==
PROVIDERS: PCP Family Medicine; Visit Provider Orthopaedic Surgery
DX: M71.22 Synovial cyst of popliteal space [Baker], left knee (principal)
CPT/HCPCS: 93971

== ENCOUNTER 2024-08-27 08:52 | Outpatient (CLI) | payer MEDICARE, SELFPAY ==
--- NOTE | ~2024-08-27 | MM_ITS ---
EXAMINATION: MM screening andi BI w xavier HISTORY: Screening TECHNIQUE: Craniocaudal and mediolateral oblique 3-D tomosynthesis images were obtained and synthetic 2-D images were generated. CAD analysis was submitted and interpreted. COMPARISON: Comparison to multiple prior studies sequentially, with oldest reviewed study dated 12/10. BREAST PARENCHYMAL COMPOSITION: Not dense: There are scattered areas of fibroglandular density. FINDINGS: There is no evidence of suspicious mass, calcification, or architectural distortion to sugg est malignancy in either breast. There has been no suspicious interval change. IMPRESSION: 1. No mammographic evidence of malignancy. 2. Recommend routine screening mammography in one year. BI-RADS Category 1: Negative Reviewed, dictated and finalized at location A.
--- OUTSIDE RECORDS SUMMARY | 2024-08-27 09:23 | XMS_ITS | Clinical Summary ---
Author Organization [facility] Address [address] [place] [address] Care Team Providers Care Paint Preparer Name Role Phone Unavailable Primary Care Provider Unavailabl e Source Comments [facility],non-owned Affiliates and Associated Physician Practices is amultiple site organization consisting of ambulatory clinics and hospital sitesin [place], [place], [place] and [place]. This disclosure is being madepursuant to the Care Everywhere program and may not contain all information available regarding this patient. Last updated 17.[facility] Allergies Active Allergy Reactions Criticality Noted Date [...] patient's age to complete [place] [address] [facility]
--- OUTSIDE RECORDS SUMMARY | 2024-08-27 09:23 | XMS_ITS | Data Portability ---
Author Organization [place] - S [employer], Main Office Address [address] [place] [address] Care Team Providers Care Supply Manager Name Role Phone BERNADETTE HUBBARD Primary Care Provider [phone] BERNADETTE HUBBARD Referring Provider [phone] Assessment Encounter Date Assessment Date Assessment LastModified [...] more than half the time spent in ahkc-xj-bqev care. Not available 11/05/2022 22:27:30 11/09/2022 11/09/2022 [...] to a 32 mm head on the [place] cup system. With her abductor deficiency she [...] more than half the time spent in dqga-oc-wmlc care. Not available 11/13/2022 13:15:15 01/10/2023 01/10/2023 [...] more than half the time spent in cbzv-og-fgzi care. Not available 02/22/2023 16:27:50 Plan of Treatment Reminders Order Date Submit Date Provider Last Modified By Organization Details Last Modified Time Details Appointments None recorded. Lab None recorded. Referral None recorded. Procedures None recorded. Surgeries None recorded. Imaging XR, hip + pelvis, bilateral, 3 or 4 view 2022 023 [facility] [place], [address], [place], [address], 3 10:09:18 XR, hip + pelvis, unilateral 2022 023 [facility] [place], [address], [place], [address], 3 11:16:35 MRI, hip, w/o contrast - INCLUDE T2 CORONAL L-HIP AND PELVIS 2022 023 Not available 11:16:36 Medication Orders meloxicam 15 mg tablet 2022 023 [facility] [address], [address], 3 09:23:44 Patient TargetsNo targets recorded. Patient InstructionsNo instructions recorded. Reason for Referral None Reported. Results Created Date Observation Date Name Description Value Unit Range Abnormal Flag Note LastModifiedBy Organization Detail LastModifiedTime 11/04/19 XR, hip + pelvi s, unila teral No observ ation record ed. [facility] [place] [address] [facility] [address], [place], [address], 11/05/2022 22:20:26 11/04/19 23 02/08/2022 XR, hip, unila teral No observ ation record ed. Not Available 2022 16:27:18 11/08/19 23 MR hip w/o contr ast, left [facility] [address], [place] [address] Patien t Name: PRASHANT FLOYD Access ion #: [id number] Sex: F : 1955 4 7 Dictat ed By: Thee armas Attend ing Physic hussein: [facility]S [facility] Physic hussein: E[place] H[place]S Exam Date: 2022 [...] [address], [place] [address] Patien t Name: PRASHANT FLOYD ion #: [id number] Sex: F : 1955 4 7 [...] at 2022 12:57: 17 PM Page [address] ([facility]) [address] [place], [address], 11/08/2022 16:35:29 12/21/19 23 12/06/2022 elect goyo lozano am No observ ation record ed. Not Available 2022 14:06:49 12/21/19 23 05/05/2022 bone densi ty No observ ation record ed. Not Available 2022 10:35:20 12/28/19 23 12/27/2022 XR, hip + pelvi s, unila teral No observ ation record ed. [email or web address] [place] [id number] [facility] [address], [place], [address], 12/28/2022 10:56:32 12/28/19 23 12/27/2022 XR, hip + pelvi s, unila teral No observ ation record ed. [address] [facility] [address], [place], [address], 12/28/2022 10:56:46 01/25/20 23 XR, hip + pelvi s, bilat eral, 3 or 4 view No observ ation record ed. [facility] [place] [address] [facility] [address], [place], [address], 01/28/2023 16:39:21 02/22/20 23 02/21/2023 US, dorinda x, terrance s, lower extre mity No observ ation record ed. [email or web address] [facility] [address] [facility] [address], [place], [address], 02/21/2023 16:19:05 Result Notes None recorded. Problems Name Problem SNOMED Code Status Onset Date Resolution Date Notes Provider Name and Address Organization Details Recorded Time Pain of left hip joint 6761209425295 00 Active 2022 ISABELA Olson[place] [facility] 3 11:31:47 Osteoarthri tis of left hip joint 6379511451972 08 Active 2022 ISABELA Olson, [place] [facility] 3 15:59:35 Osteoarthri tis of right hip joint 7846435514938 07 Active 2022 ISABELA Olson, [place] [facility] 3 10:01:06 History of total replacement of left hip joint 1109248317561 105 Active 2022 Paula Gresham CMA null, [place] [facility] 3 10:01:31 Edema of lower extremity 598649916 Active 2022 ISABELA Olson, [place] [facility] 3 10:54:37 Pain of right hip joint 4894753585918 02 Active 2023 ELIS Garcia null, [place] [facility] 4 13:11:56 Problem Notes None recorded. Procedures Surgical History Date Name Laterality Status Provider Name and Address Organization Details Recorded Time 8 Foot Surgery completed Paula Gresham CMA [place] [facility] 11/03/2022 11:30:44 Imaging Results None recorded. Procedure Notes None recorded. Medical Equipment None Reported. Allergies Allergen ID Allergen Name Allergen Category Reaction Reaction Severity Criticality Documentation Date Start Date Code Code System Note Provider Name and Address Organization Details Recorded Time 07113 Product containin g penicilli n (product) medicatio n rash Not available Not available 11/03/2022 02416 8001 SNOMED Paula ISABELA Gresham [employer] [employer] 11:26:49 Medications Name Sig Start Date Stop [...] Updated DateTime 11/03/2022 175.26 cm 27.6 kg/m2 15871.77 g Mariposa Molina CNA [employer] 11/03/2022 11:35:07 Date Recorded Body height Provider Name an d Address Organization Details Last Updated DateTime 11/09/2022 175.26 cm Ashlee Kebede Ros [employer] 11/09/2022 10:28:25 Date Recorded Body height Provider Name an d Address Organization Details Last Updated DateTime 01/10/2023 175.26 cm Ashlee Kebede ELIS [place] - [facility] 01/10/2023 09:23:08 Date Recorded Body height Provider Name an d Address Organization Details Last Updated DateTime 01/24/2023 175.26 cm ELIS Garcia [place] [facility] 01/24/2023 09:07:15 Date Recorded Body height Provider Name an d Address Organization Details Last Updated DateTime 02/21/2023 175.26 cm Ashlee Kebede [facility] 02/21/2023 09:42:47 Social History None recorded. Functional Status Question Answer Note LastModified by Organizat ion Details LastModified Time Do you or have you ever used any other forms of tobacco or nicotine? No Information not available 11/03/2022 What is your level of alcohol consumption? Occasional Information not available 11/03/2022 Mental Status None recorded. Family History Relationship Description Onset Age of this Age Resolved Age Notes LastModified by Organization Details LastModified Time Father Heart disease Not available 2022 11:29:39 Medical History Condition Response BLINDNESS N KIDNEY STONES N MRSA N CARPAL TUNNEL SYNDROME N LUNG DISEASE/DISORDER N HISTORY OF DRUG ABUSE N COPD N RADIATION / CHEMOTHERAPY N SPORTS INJURY N ANKLE PAIN N BLOOD DISEASES N PAST SPINAL SURGERY N SCHIZOPHRENIA N SHINGLES N SHOULDER PAIN N DEPRESSION (INCLUDING POST ) N BOWEL PROBLEMS N FAILED BACK SYNDROME N STROKE/TIA N KNEE PAIN N OTHER MODALITIES N ULCERS N BENIGN PROSTATIC HYPERPLASIA N OBESITY N [...] HAVE YOU BEEN HOSPITALIZED OR SEEN IN [facility] ER IN THE PAST YEAR ? N [...] SNOMED-CT Code Diagnosis ICD10 Code Diagnosis Note [id number] Edson Tong MD [facility] [place] [address] [facility] [address] [place] [address] 11/03/2022 10:40:36 11/06/2022 11:16:35 Pain of left hip joint 1519079415 35757 M25.552 M16.12 [id number] Edson Tong MD [address] [address] 11/09/2022 10:26:17 11/14/2022 10:38:26 Pain of left hip joint 9347297229 08126 M25.552 M16.12 [id number] Edson Tong MD [facility] [place] [address] [facility] [address] [place] [address] 01/10/2023 09:17:21 01/10/2023 10:41:43 History of total replacement of left hip joint 0611788739 053182 Z96.286 [id number] Edson Tong MD [facility] [place] [address] [place] [address] 01/24/2023 09:05:29 01/30/2023 10:09:18 History of total replacement of left hip joint 6948548284 335028 Z96.642 M16.11 [id number] Edson Togn MD [facility] [place] [address] [facility] [facility] [address] [place] [address] 02/21/2023 09:34:09 02/26/2023 11:00:59 History of total replacement of left hip joint 5176224429 963226 Z96.642 M16.11 Health Concerns Section Related Observation LastModified by Organization Detai ls LastModified Time None Recorded Concern Status LastModified by Organization Details LastModified Time None Recorded Advance Directives Directive None Recorded Payers Insurance Date Sequence Insurance Name Policy Number Policy Hagan Covered Member ID Hagan Member ID Guarantor Name 02/27/2023 1 [facility] (MEDICARE REPLACEMENT/A DVANTAGE - HMO) [id number] Prashant Floyd [id number] Prashant Floyd Notes Date Note Type Note [...] density test was done in April at [facility]. We will request the result She does [...] left hip two views from 02/08/2022 from [place] are reviewed and demonstrate severe type 1 osteoarthritis left hip with cystic changes of superior acetabulum superior femoral head cqoq-wy-eqvy contact superiorly. Edson Tong MD [address], [place], [address], [employer] 11/05/2022 22:27:45 02/21/2023 text/html patient returns. She [...] Tong MD [address], [address], [place], [address], [employer] 02/22/2023 16:28:03 OBGyn Episode No OBEpisode recorded.
--- OUTSIDE RECORDS SUMMARY | 2024-08-27 09:24 | XMS_ITS | Clinical Summary ---
Author Organization [facility] Care Team Providers Care Oxygen Furnace Operator Name Role Phone Unavailable Primary Care Provider [...]
== END 2024-08-27 08:53 | disposition home or self-care (01) ==
LOC: ANHIMG 08:54
PROVIDERS: PCP Family Medicine; Visit Provider Obstetrics & Gynecology
DX: Z12.31 Encounter for screening mammogram for malignant neoplasm of breast (principal)
CPT/HCPCS: 77063; 77067

== ENCOUNTER 2024-09-22 07:02 | Outpatient (CLI) | payer MEDICARE, SELFPAY ==
--- OUTSIDE RECORDS SUMMARY | 2024-09-22 07:05 | XMS_ITS | Clinical Summary ---
Author Organization [facility] Address [address] [place] [address] Care Team Providers Care Dairy Nutrition Consultant Name Role Phone Unavailable Primary Care Provider Unavailabl e Source Comments [facility] [employer],non-owned Affiliates and Associated Physician Practices is amultiple site organization consisting of ambulatory clinics and hospital sitesin [place], [place], [place] and [place]. This disclosure is being madepursuant to the Care Everywhere program and may not contain all information available regarding this patient. Last updated 17.[facility] Allergies Active Allergy Reactions Criticality Noted Date [...] season) 2023 DEPRESSION SCREENING 03/12/2024 INFLUENZA VACCINE (#1) 2024 Respiratory Syncytial Virus (RSV) Vaccine Pt: [...] patient's age to complete [place] [address] [facility]
--- OUTSIDE RECORDS SUMMARY | 2024-09-22 07:06 | XMS_ITS | Data Portability ---
Author Organization [place] [facility] [employer], Main Office Address [address] [place] [address] Care Team Providers Care Methods Analyst Name Role Phone BERNADETTE HUBBARD Primary Care Provider [phone] BERNADETTE HUBBARD Referring Provider [phone] Assessment Encounter Date Assessment Date Assessment LastModified [...] with primary care physician. Follow up here p.r.ld. She states she is going through a [...] more than half the time spent in cvdd-rg-vpci care. Not available 11/05/2022 22:27:30 11/09/2022 11/09/2022 [...] to a 32 mm head on the [place] cup system. With her abductor deficiency she [...] more than half the time spent in mdcx-vd-nnhp care. Not available 11/13/2022 13:15:15 01/10/2023 01/10/2023 [...] weeks with x-rays of the left hip [email or web address] Not available 01/10/2023 10:39:52 01/24/2023 01/24/2023 Patient [...] more than half the time spent in yvqq-ol-ucic care. Not available 02/22/2023 16:27:50 Plan of Treatment Reminders Order Date Submit Date Provider Last Modified By Organization Details Last Modified Time Details Appointments None recorded. Lab None recorded. Referral None recorded. Procedures None recorded. Surgeries None recorded. Imaging XR, hip + pelvis, bilateral, 3 or 4 view 2022 023 [facility] [place], [address], [place], [address], 3 10:09:18 XR, hip + pelvis, unilateral 2022 023 [facility] [place], [address], [place], [address], 3 11:16:35 MRI, hip, w/o contrast - INCLUDE T2 CORONAL L-HIP AND PELVIS 2022 023 Not available 11:16:36 Medication Orders meloxicam 15 mg tablet 2022 023 [email or web address] [facility] [address], [address], 3 09:23:44 Patient TargetsNo targets recorded. Patient InstructionsNo instructions recorded. Reason for Referral None Reported. Results Created Date Observation Date Name Description Value Unit Range Abnormal Flag Note LastModifiedBy Organization Detail LastModifiedTime 11/04/19 XR, hip + pelvi s, unila teral No observ ation record ed. [facility] [place] [address], [place], [address], 11/05/2022 22:20:26 11/04/19 23 02/08/2022 XR, hip, unila teral No observ ation record ed. Not Available 2022 16:27:18 11/08/19 23 MR hip w/o contr ast, left [facility] [address], [place] [address] Patien t Name: PRASHANT FLOYD Access ion #: [id number] Sex: F : 1955 4 7 Dictat ed By: Thee armas Attend ing Physic hussein: EDSON HILLS Orderi ng Physic hussein: EDSON HILLS Exam Date: 2022 [...] Page 1 [facility] [address] [facility] [place] [address] Patien t Name: PRASHANT FLOYD ion #: [id number] Sex: F : 1955 4 7 Dictat ed By: Thee armas Attend ing Physic hussein: RAMONA PEÑA [facility] Physic hussein: EDSON HILLS Exam Date: 2022 09:38 AM Exam Name: MRI HIP LT WO Admitt ing Diagno sis(es ): Small to modera te left hip joint effusi on with mild synovi tis. Additi onal findin gs as detail ed above. Electr onical ly Signed by: Thee armas at 2022 12:57: 17 PM Page [address] (Imaging) [address] [facility] [place], [address], 11/08/2022 16:35:29 12/21/19 23 12/06/2022 elect goyo lozano am No observ ation record ed. Not Available 2022 14:06:49 12/21/19 23 05/05/2022 bone densi ty No observ ation record ed. Not Available 2022 10:35:20 12/28/19 23 12/27/2022 XR, hip + pelvi s, unila teral No observ ation record ed. [place] [address] [facility] [address], [place], [address], 12/28/2022 10:56:32 12/28/19 23 12/27/2022 XR, hip + pelvi s, unila teral No observ ation record ed. [place] [address] [facility] [address], [place], [address], 12/28/2022 10:56:46 01/25/20 23 XR, hip + pelvi s, bilat eral, 3 or 4 view No observ ation record ed. [facility] [place] [address], [place], [address], 01/28/2023 16:39:21 02/22/20 23 02/21/2023 US, dorinda x, terrance s, lower extre mity No observ ation record ed. [email or web address] [facility] [address] [facility] [address], [place], [address], 02/21/2023 16:19:05 Result Notes None recorded. Problems Name Problem SNOMED Code Status Onset Date Resolution Date Notes Provider Name and Address Organization Details Recorded Time Pain of left hip joint 3599587308350 00 Active 2022 ISABELA Olson, [place] - [place] [facility] 3 11:31:47 Osteoarthri tis of left hip joint 3621900995561 08 Active 2022 ISABELA Olson, [place] [facility] 3 15:59:35 Osteoarthri tis of right hip joint 9357502557013 07 Active 2022 ISABELA Olson, [place] [facility] 3 10:01:06 History of total replacement of left hip joint 6286781656895 105 Active 2022 ISABELA Olson, [place] [facility] 3 10:01:31 Edema of lower extremity 096921071 Active 2022 ISABELA Olson, [place] [facility] 3 10:54:37 Pain of right hip joint 1817142225408 02 Active 2023 ELIS Garcia, [place] - [place] [facility] 4 13:11:56 Problem Notes None recorded. Procedures Surgical History Date Name Laterality Status Provider Name and Address Organization Details Recorded Time 8 Foot Surgery completed Paula Gresham CMA [place] [facility] 11/03/2022 11:30:44 Imaging Results None recorded. Procedure Notes None recorded. Medical Equipment None Reported. Allergies Allergen ID Allergen Name Allergen Category Reaction Reaction Severity Criticality Documentation Date Start Date Code Code System Note Provider Name and Address Organization Details Recorded Time 09857 Product containin g penicilli n (product) medicatio n rash Not available Not available 11/03/2022 79128 8001 SNOMED Paula MargaISABELA, [facility] [employer] 11:26:49 Medications Name Sig Start Date Stop [...] Updated DateTime 11/03/2022 175.26 cm 27.6 kg/m2 61464.77 g Mariposa Molina CNA [place] [employer] [facility] [employer] 11/03/2022 11:35:07 Date Recorded Body height Provider Name an d Address Organization Details Last Updated DateTime 11/09/2022 175.26 cm ELIS Garcia [facility] [employer] 11/09/2022 10:28:25 Date Recorded Body height Provider Name an d Address Organization Details Last Updated DateTime 01/10/2023 175.26 cm ELIS Garcia [facility] 01/10/2023 09:23:08 Date Recorded Body height Provider Name an d Address Organization Details Last Updated DateTime 01/24/2023 175.26 cm ELIS [place] Ally Brad [facility] 01/24/2023 09:07:15 Date Recorded Body height Provider Name an d Address Organization Details Last Updated DateTime 02/21/2023 175.26 cm Ashlee Kebede Ros [facility] 02/21/2023 09:42:47 Social History None recorded. Functional [...] N RADIATION / CHEMOTHERAPY N COPD N ANKLE PAIN N SPORTS INJURY N BLOOD DISEASES N PAST SPINAL SURGERY N SCHIZOPHRENIA N SHINGLES N BOWEL PROBLEMS N DEPRESSION (INCLUDING POST ) N SHOULDER PAIN N FAILED BACK SYNDROME N STROKE/TIA N [...] SLEEP APNEA N SOFT TISSUE INJURY N BACK INJECTIONS N ALLERGIES/HAYFEVER N INFECTIOUS DISEASE N HEART ARRHYTHMIA N INSOMNIA N ESRD N PAST INTERVENTIONAL PAIN MANAGEMENT HIST ORY N RHEUMATOID ARTHRITIS N PAST MEDICATION HISTORY N HIGH CHOLESTEROL / HYPERLIPIDEMIA N PVD N EDEMA N CHRONIC PAIN SYNDROME N CAROTID BLOCKAGE N BACK / NECK PROBLEMS N HAVE YOU BEEN HOSPITALIZED OR SEEN IN [facility] ER IN THE PAST YEAR ? N BURSITIS N HERNIATED DISC N DIALYSIS N POLYCYSTIC OVARIES N FIBROMYALGIA N OSTEOPOROSIS N ARTHRITIS N RESPIRATORY PROBLEMS N PAST HISTORY OF FALL N NO SIGNIFICANT PAST MEDICAL HISTORY N PERIPHERAL NEUROPATHY N DIABETES, TYPE N VON WILLIBRAND'S DISEASE N HEARTBURN / REFLUX N POST LAMINECTOMY SYNDROME N HEPATITIS / LIVER DISEASE N GOUT N SLEEP DISORDER N ALZHEIMER'S DISEASE N HERPES N SEIZURES/EPILEPSY Y HEADACHES/MIGRAINES N VASCULAR DISEASE N HIP PAIN N Blood Disorder N DIZZINESS N HEAD TRAUMA OR INJURY N HEART DISEASE/HEART PROBLEMS N MULTIPLE SCLEROSIS N NEUROPSYCHOLOGICAL N CARDIAC ARRHYTHMIA N CANCER: SPECIFY N ANESTHESIA COMPLICATIONS N ATRIAL FIBRILLATION Y AUTOIMMUNE DISEASE N Gynecological HistoryNo gynecological history recorded. Obstetrics History GPAL:G 0 P 0 0 0 0 Past Encounters Encounter ID Performer Location Encounter Start Date Encounter Closed Date Diagnosis/Indication Diagnosis SNOMED-CT Code Diagnosis ICD10 Code Diagnosis Note [id number] Edson Tong MD [facility] [place] [address] [place] [address] 11/03/2022 10:40:36 11/06/2022 11:16:35 Pain of left hip joint 4397505960 96288 M25.552 M16.12 [id number] Edson Tong MD [facility] Orth[facility] [address] [address] 11/09/2022 10:26:17 11/14/2022 10:38:26 Pain of left hip joint 3702918278 97405 M25.552 M16.12 [id number] Edson Tong MD [facility] [place] [address] [place] [address] 01/10/2023 09:17:21 01/10/2023 10:41:43 History of total replacement of left hip joint 2186667401 778381 Z96.275 [id number] Edson Tong MD [facility] [place] [address] [place] [address] 01/24/2023 09:05:29 01/30/2023 10:09:18 History of total replacement of left hip joint 7442221297 664363 Z96.642 M16.11 [id number] Edson Tong MD [facility] [place] [address] [address] [facility] [facility] [address] [place] [address] 02/21/2023 09:34:09 02/26/2023 11:00:59 History of total replacement of left hip joint 8157660961 631116 Z96.642 M16.11 Health Concerns Section Related Observation LastModified by Organization Detai ls LastModified Time None Recorded Concern Status LastModified by Organization Details LastModified Time None Recorded Advance Directives Directive None Recorded Payers Insurance Date Sequence Insurance Name Policy Number Policy Hagan Covered Member ID Hagan Member ID Guarantor Name 02/27/2023 1 [facility] (MEDICARE REPLACEMENT/A DVANTAGE - HMO) [id number] Prashant Floyd [id number] Prashant Floyd Notes Date Note Type Note [...] density test was done in April at [facility]. We will request the result She does [...] left hip two views from 02/08/2022 from [place] are reviewed and demonstrate severe type 1 osteoarthritis left hip with cystic changes of superior acetabulum superior femoral head secd-mk-kuuf contact superiorly. Edson Tong MD [address], [place], [address], [employer] 11/05/2022 22:27:45 02/21/2023 text/html patient returns. She [...] Tong MD [address], [place], [address], [employer] 02/22/2023 16:28:03 OBGyn Episode No OBEpisode recorded.
--- OUTSIDE RECORDS SUMMARY | 2024-09-22 07:06 | XMS_ITS | Clinical Summary ---
Author Organization [facility] Care Team Providers Care Fabric Coating Supervisor Name Role Phone Unavailable Primary Care Provider [...]
--- OUTSIDE RECORDS SUMMARY | 2024-09-22 07:06 | XMS_ITS | Clinical Summary ---
Author Organization [facility] Address [facility] [place] [address] Care Team Providers Care Wrecking Crane Engine Operator Name Role Phone Tai Hubbard MD Primary Care Provider [phone] Social History Tobacco Use Types Packs/Day Years [...] patient's age to complete this topic Insurance [facility] Care Teams Wrecking Crane Engine Operator Relationship Specialty Start Date End Date Tai Hubbard MD [address] [place] [address] [place] [address] PCP - General [facility]ILY PRACT[facility] 01/11/23
[2024-09-22 07:19] LABS: Hematocrit 33.7 % (35.0-42.0); Hemoglobin 11.0 g/dL (11.7-13.8); Immature Granulocyte Percent A 0.2 % (0.0-0.0); Lymphocytes Absolute Auto 1.41 K/mm3 (1.10-4.50); Mean Corpuscular HGB Conc 32.6 g/dL (32-36); Mean Corpuscular Hemoglobin 29.8 pg (27.0-31.0); Mean Corpuscular Volume 91.3 fL (78.0-102.0); Nucleated Red Blood Cells Absolute Auto 0.00 K/mm3 (0.00-0.00); Nucleated Red Blood Cells Perc 0.0 % (0-0.0); Platelet Count Result 228 K/mm3 (150-420); Red Blood Count 3.69 M/mm3 (4.20-5.40); White Blood Count 5.4 K/mm3 (4.8-10.8)
[2024-09-22 07:51] LABS: Alanine Aminotransferase 18 U/L (6-35); Albumin Level 3.8 g/dL (3.5-5.1); Alkaline Phosphatase 81 U/L (38-126); Anion Gap 1 mmol/L (4-12); Aspartate Amino Transferase 28 U/L (14-36); Bilirubin,Total 0.4 mg/dL (0.2-1.3); Blood Urea Nitrogen 18 mg/dL (7-17); Calcium 8.6 mg/dL (8.4-10.2); Carbon Dioxide 30 mmol/L (22-30); Chloride 105 mmol/L (98-107); Estimated Glomerular Filt Rate > 60; Glucose 85 mg/dL (65-110); Osmolality Calculated 282 mOsm/kg (285-295); Potassium 4.0 mmol/L (3.4-5.0); Sodium 136 mmol/L (137-145); Total Protein 6.5 g/dL (6.3-8.2)
== END 2024-09-22 07:03 | disposition home or self-care (01) ==
PROVIDERS: PCP Nurse Practitioner Family; Visit Provider Orthopaedic Surgery
DX: M17.12 Unilateral primary osteoarthritis, left knee (principal); Z79.1 Long term (current) use of non-steroidal anti-inflammatories (NSAID)
CPT/HCPCS: 36415; 80053; 85025

== ENCOUNTER 2024-10-22 07:04 | Outpatient (CLI) | payer MEDICARE, SELFPAY ==
--- OUTSIDE RECORDS SUMMARY | 2024-10-22 07:08 | XMS_ITS | Clinical Summary ---
Author Organization [facility] Address [address] [place] [address] Care Team Providers Care [place] Name Role Phone Unavailable Primary Care Provider Unavailabl e Source Comments [facility],non-owned Affiliates and Associated Physician Practices is amultiple site organization consisting of ambulatory clinics and hospital sitesin [place], [place], [place]. This disclosure is being madepursuant to the Care Everywhere program and may not contain all information available regarding this patient. Last updated 17.[facility] Allergies Active Allergy Reactions Criticality Noted Date [...] patient's age to complete [place] [address] [facility]
[2024-10-22 07:14] LABS: Hematocrit 34.6 % (35.0-42.0); Hemoglobin 11.5 g/dL (11.7-13.8); Mean Corpuscular HGB Conc 33.2 g/dL (32-36); Mean Corpuscular Hemoglobin 30.1 pg (27.0-31.0); Mean Corpuscular Volume 90.6 fL (78.0-102.0); Platelet Count Result 236 K/mm3 (150-420); Red Blood Count 3.82 M/mm3 (4.20-5.40); White Blood Count 4.6 K/mm3 (4.8-10.8)
[2024-10-22 07:56] LABS: Alanine Aminotransferase 18 U/L (6-35); Albumin Level 4.1 g/dL (3.5-5.1); Alkaline Phosphatase 74 U/L (38-126); Anion Gap 4 mmol/L (4-12); Aspartate Amino Transferase 27 U/L (14-36); Bilirubin,Total 0.5 mg/dL (0.2-1.3); Blood Urea Nitrogen 15 mg/dL (7-17); Calcium 9.2 mg/dL (8.4-10.2); Carbon Dioxide 29 mmol/L (22-30); Chloride 105 mmol/L (98-107); Cholesterol 195 mg/dL (0-200); Estimated Glomerular Filt Rate > 60; Glucose 92 mg/dL (65-110); HDL Direct 70 mg/dL; Osmolality Calculated 286 mOsm/kg (285-295); Potassium 4.1 mmol/L (3.4-5.0); Sodium 138 mmol/L (137-145); Total Protein 6.9 g/dL (6.3-8.2); Triglycerides 77 mg/dL (<150)
[2024-10-23 07:09] LABS: Carbamazepine (Tegretol) 5.8 ug/mL (4.0-12.0)
== END 2024-10-22 07:05 | disposition home or self-care (01) ==
LOC: CHSLAB 07:05
PROVIDERS: PCP Nurse Practitioner Family; Visit Provider Nurse Practitioner Family
DX: Z79.899 Other long term (current) drug therapy (principal); E78.5 Hyperlipidemia, unspecified; E55.9 Vitamin D deficiency, unspecified
CPT/HCPCS: 36415; 80053; 80061; 80156; 82306; 85027